=== PATIENT | male | born 1935 | race Caucasian/White ===

== ENCOUNTER → 2017-01-28 | Outpatient (CLI) | payer OTHER ==
[~2017-01-28] MED LIST: GADOBUTROL 10 MMOL/10 ML PFS ONE
== END | disposition home or self-care (01) ==
LOC: CFH 09:39
PROVIDERS: ATTEND Neurological Surgery
DX: G93.89 Other specified disorders of brain (principal); G31.9 Degenerative disease of nervous system, unspecified
CPT/HCPCS: 70553; A9585

== ENCOUNTER → 2017-02-18 | Outpatient (CLI) | payer OTHER | END | disposition home or self-care (01) | LOC: STAR 11:15 | PROVIDERS: ATTEND Family Medicine | DX: Z01.818 Encounter for other preprocedural examination (principal); R40.0 Somnolence; R53.83 Other fatigue | CPT/HCPCS: 93005 ==

== ENCOUNTER 2017-10-11 10:22 | Emergency (ER) | payer OTHER ==
[~2017-10-11] VITALS: Ht 185.4 cm; Wt 70.5 kg
[2017-10-11 11:51] LABS: MICROSCOPIC NOT IND
[2017-10-11 11:53] LABS: CULTURE INDICATED? NO
[2017-10-11] MEDS ORDERED: SODIUM CHLORIDE FLUSH 10ML SYR IVF ONE (12:00)
[2017-10-11 12:11] LABS: BASOPHILS # (AUTO) 0.02 x10^3/uL (0-0.1); BASOPHILS % (AUTO) 0 % (0-1); EOSINOPHILS # (AUTO) 0.19 x10^3/uL (0-0.4); EOSINOPHILS % (AUTO) 3 % (1-7); LYMPHOCYTES # (AUTO) 1.52 x10^3/uL (1-3.4); LYMPHOCYTES % (AUTO) 20 % (22-44); MD NO; MEAN CORPUSCULAR HEMOGLOBIN 29.7 pg (27.5-34.5); MEAN CORPUSCULAR VOLUME 89.8 fL (81-97); MEAN PLATELET VOLUME 7.7 fL (7.4-10.4); MONOCYTES # (AUTO) 0.55 x10^3/uL (0.2-0.8); MONOCYTES % (AUTO) 7 % (2-9); NEUTROPHILS # (AUTO) 5.31 x10^3/uL (1.8-6.8); NEUTROPHILS % (AUTO) 70 % (42-75); PLATELET COUNT 249 x10^3/uL (130-400)
[2017-10-11 12:16] LABS: ALBUMIN 3.6 g/dL (3.4-5.0); ANION GAP 7 mmol/L (5-15); CALCIUM 9.6 mg/dL (8.5-10.1); CHLORIDE 105 mmol/L (98-107)
[2017-10-11 12:20] LABS: ALANINE AMINOTRANSFERASE 11 U/L (12-78); ALKALINE PHOSPHATASE 109 U/L (45-117); BILIRUBIN,TOTAL 0.5 mg/dL (0.2-1.0); CREATININE 0.99 mg/dL (0.7-1.3); TOTAL PROTEIN 7.3 g/dL (6.4-8.2)
[2017-10-11] MEDS ORDERED: OMNIPAQUE 350 MG/ML, 100ML BOTTLE ONE (14:17)
[2017-10-11] MEDS ORDERED: FINA5TAB4 PO (14:25)
[2017-10-11] MEDS ORDERED: CHOL200024 PO (14:25)
[2017-10-11] MEDS ORDERED: ASPI-496 PO (14:25)
[2017-10-11] MEDS ORDERED: RANI150T8 PO (14:25)
[2017-10-11] MEDS ORDERED: FOLI-17 PO (14:25)
[2017-10-11] MEDS ORDERED: PINK LADY ENEMA 1,000 ML PR ONE (15:30)
[2017-10-11 17:19] VITALS: BP 160/72
== END 2017-10-11 17:21 | disposition home or self-care (01) ==
LOC: ED 17:16
DX: K59.00 Constipation, unspecified (principal); R33.9 Retention of urine, unspecified; N40.0 Benign prostatic hyperplasia without lower urinary tract symptoms; E11.9 Type 2 diabetes mellitus without complications; Z87.891 Personal history of nicotine dependence
CPT/HCPCS: 36415; 51702; 74022; 74177; 80053; 81003; 83690; 85025; 93005; 99285; Q9967

== ENCOUNTER 2017-10-12 13:05 | Inpatient (IN) | payer OTHER ==
[~2017-10-12] VITALS: Ht 185.4 cm; Wt 68.4 kg
[~2017-10-12 13:05] MED LIST changes: +ASPI-496 PO; +CHOL200024 PO; +FINA5TAB4 PO; +FOLI-17 PO; -GADOBUTROL 10 MMOL/10 ML PFS ONE; +RANI150T8 PO
[2017-10-12 15:14] LABS: BASOPHILS # (AUTO) 0.01 x10^3/uL (0-0.1); BASOPHILS % (AUTO) 0 % (0-1); EOSINOPHILS # (AUTO) 0.05 x10^3/uL (0-0.4); EOSINOPHILS % (AUTO) 1 % (1-7); LYMPHOCYTES # (AUTO) 1.22 x10^3/uL (1-3.4); LYMPHOCYTES % (AUTO) 14 % (22-44); MD NO; MEAN CORPUSCULAR HEMOGLOBIN 30.1 pg (27.5-34.5); MEAN CORPUSCULAR HGB CONC 33.5 g/dL (33.2-36.2); MEAN CORPUSCULAR VOLUME 89.7 fL (81-97); MEAN PLATELET VOLUME 7.3 fL (7.4-10.4); MONOCYTES # (AUTO) 0.57 x10^3/uL (0.2-0.8); MONOCYTES % (AUTO) 7 % (2-9); NEUTROPHILS # (AUTO) 6.61 x10^3/uL (1.8-6.8); NEUTROPHILS % (AUTO) 78 % (42-75); PLATELET COUNT 258 x10^3/uL (130-400); RED BLOOD COUNT 4.88 x10^6/uL (4.38-5.82); RED CELL DISTRIBUTION WIDTH 13.5 % (9.4-14.8)
[2017-10-12 15:22] LABS: ALANINE AMINOTRANSFERASE 13 U/L (12-78); ALBUMIN 3.7 g/dL (3.4-5.0); ANION GAP 4 mmol/L (5-15); CALCIUM 9.2 mg/dL (8.5-10.1); CHLORIDE 104 mmol/L (98-107); CREATININE 1.18 mg/dL (0.7-1.3)
[2017-10-12 15:25] LABS: ALKALINE PHOSPHATASE 117 U/L (45-117); BILIRUBIN,TOTAL 0.4 mg/dL (0.2-1.0); TOTAL PROTEIN 7.7 g/dL (6.4-8.2)
[2017-10-12 15:28] LABS: MICROSCOPIC INDICATED
[2017-10-12 15:35] LABS: CULTURE INDICATED? YES
[2017-10-12] MEDS ORDERED: PINK LADY ENEMA 1,000 ML PR ONE (16:00)
[2017-10-12] MEDS ORDERED: ONDANSETRON ODT 4 MG PO PRN (18:30)
[2017-10-12] MEDS ORDERED: ACETAMINOPHEN 325 MG TABLET PO PRN (18:30)
[2017-10-12] MEDS ORDERED: MAGNESIUM CITRATE 300ML ORAL SOL PO ONE (18:30)
[2017-10-12 19:32] VITALS: BP 160/70
[2017-10-12] MEDS: CEFTRIAXONE PMX 1GM/50ML 50 ML IV SCH (19:57)
[2017-10-12] MEDS: SODIUM CHLORIDE FLUSH 10ML SYR IVF SCH (20:41)
[2017-10-12] MEDS ORDERED: ALUMINUM/MAG/SIMETHICONE 30 ML UDC PO PRN ×2 (22:30)
[2017-10-12] MEDS ORDERED: SODIUM CHLORIDE 0.9% 1,000 ML IV SCH (22:30)
[2017-10-12] MEDS: BISACODYL 10 MG SUPP PR SCH (22:58)
[2017-10-13 01:36] VITALS: BP 132/74
[2017-10-13 06:50] VITALS: BP 167/83
[2017-10-13] MEDS: TAMSULOSIN 0.4 MG CAP.ER.24H PO SCH (08:36)
[2017-10-13] MEDS: FINASTERIDE 5 MG TABLET PO SCH (08:36)
[2017-10-13] MEDS: CHOLECALCIFEROL 1,000 UNIT TABLET PO SCH (08:36)
[2017-10-13] MEDS: FOLIC ACID 1 MG TABLET PO SCH (08:36)
[2017-10-13] MEDS: FAMOTIDINE 20 MG TABLET PO SCH (08:36)
[2017-10-13] MEDS: SODIUM CHLORIDE FLUSH 10ML SYR IVF SCH ×2 (08:37→21:10)
[2017-10-13] MEDS ORDERED: ASPIRIN 81 MG TABLET EC PO SCH (09:00)
[2017-10-13] MEDS: BISACODYL 10 MG SUPP PR SCH ×2 (09:00→21:10)
[2017-10-13 12:45] VITALS: BP 152/78
[2017-10-13] MEDS ORDERED: TAMS-11 PO (14:48)
[2017-10-13 17:55] VITALS: BP 100/64
[2017-10-13] MEDS ORDERED: SODIUM CHLORIDE 0.9%, 500ML IVBOLUS ONE (18:30)
[2017-10-13 19:03] VITALS: BP 119/66
[2017-10-13] MEDS ORDERED: SODIUM CHLORIDE 0.9% 1,000 ML IV SCH (20:00)
[2017-10-13] MEDS: CEFTRIAXONE PMX 1GM/50ML 50 ML IV SCH (21:10)
[2017-10-14 03:15] VITALS: BP 136/71
[2017-10-14 05:13] LABS: BASOPHILS # (AUTO) 0.02 x10^3/uL (0-0.1); BASOPHILS % (AUTO) 0 % (0-1); EOSINOPHILS # (AUTO) 0.28 x10^3/uL (0-0.4); EOSINOPHILS % (AUTO) 4 % (1-7); LYMPHOCYTES # (AUTO) 1.59 x10^3/uL (1-3.4); LYMPHOCYTES % (AUTO) 23 % (22-44); MD NO; MEAN CORPUSCULAR HEMOGLOBIN 30.2 pg (27.5-34.5); MEAN CORPUSCULAR HGB CONC 33.4 g/dL (33.2-36.2); MEAN CORPUSCULAR VOLUME 90.4 fL (81-97); MEAN PLATELET VOLUME 7.7 fL (7.4-10.4); MONOCYTES # (AUTO) 0.77 x10^3/uL (0.2-0.8); MONOCYTES % (AUTO) 11 % (2-9); NEUTROPHILS % (AUTO) 62 % (42-75); PLATELET COUNT 182 x10^3/uL (130-400); RED BLOOD COUNT 3.54 x10^6/uL (4.38-5.82); RED CELL DISTRIBUTION WIDTH 13.7 % (9.4-14.8)
[2017-10-14 06:43] VITALS: BP 142/69
[2017-10-14] MEDS: BISACODYL 10 MG SUPP PR SCH (09:00)
[2017-10-14] MEDS: SODIUM CHLORIDE FLUSH 10ML SYR IVF SCH (09:00)
[2017-10-14] MEDS ORDERED: NITROGLYCERIN 0.4 MG BOTTLE (25 TABS) SL ONE (09:08)
[2017-10-14] MEDS ORDERED: METHOCARBAMOL 500 MG TABLET PO ONE (09:30)
[2017-10-14 09:45] LABS: TROPONIN I < 0.015 ng/mL (0.000-0.045)
[2017-10-14] MEDS: CHOLECALCIFEROL 1,000 UNIT TABLET PO SCH (09:47)
[2017-10-14] MEDS: FOLIC ACID 1 MG TABLET PO SCH (09:47)
[2017-10-14] MEDS: FINASTERIDE 5 MG TABLET PO SCH (09:47)
[2017-10-14] MEDS: FAMOTIDINE 20 MG TABLET PO SCH (09:47)
[2017-10-14] MEDS: TAMSULOSIN 0.4 MG CAP.ER.24H PO SCH (09:54)
[2017-10-14 12:28] VITALS: BP 101/62
[2017-10-14 14:57] LABS: TROPONIN I < 0.015 ng/mL (0.000-0.045)
[2017-10-14] MEDS ORDERED: POLY17PO5 PO (15:56)
[2017-10-14] MEDS ORDERED: DOCU-131 PO (15:56)
== END 2017-10-14 17:20 | disposition home or self-care (01) | DRG 392 ==
LOC: ED 17:17 → EDIP 17:51 → 3NE 19:19
PROVIDERS: ADMIT Hospitalist; ATTEND Hospitalist
PROC: 0T9B70Z Drainage of Bladder with Drainage Device, Via Natural or Artificial Opening (ICD-10-PCS; principal; 2017-10-12)
DX: K59.00 Constipation, unspecified (principal); E11.9 Type 2 diabetes mellitus without complications; N13.8 Other obstructive and reflux uropathy; R31.0 Gross hematuria; S37.30XA Unspecified injury of urethra, initial encounter; N40.1 Benign prostatic hyperplasia with lower urinary tract symptoms; R62.7 Adult failure to thrive; R07.89 Other chest pain; G89.29 Other chronic pain; R33.8 Other retention of urine
CPT/HCPCS: 36415; 80053; 81001; 82962; 84484; 85014; 85018; 85025; 87086; 93005; 99285; J0696; J7030; J7040

== ENCOUNTER 2017-10-14 21:25 | Emergency (ER) | payer OTHER ==
[~2017-10-14] VITALS: Ht 185.4 cm; Wt 71.6 kg
[~2017-10-14 21:25] MED LIST changes: +DOCU-131 PO; +POLY17PO5 PO; +TAMS-11 PO
[2017-10-14 21:27] VITALS: BP 148/83
== END 2017-10-15 00:41 | disposition home or self-care (01) ==
LOC: ED 23:59
DX: T83.098A Other mechanical complication of other urinary catheter, initial encounter (principal)
CPT/HCPCS: 99281

== ENCOUNTER → 2018-02-16 | Outpatient (CLI) | payer OTHER ==
[~2018-02-16] MED LIST changes: +GADOBUTROL 7.5 MMOL/7.5 ML PFS ONE; +RANI150T23 PO; -RANI150T8 PO
== END | disposition home or self-care (01) ==
LOC: CFH 09:55
PROVIDERS: ATTEND Neurological Surgery
DX: D32.0 Benign neoplasm of cerebral meninges (principal)
CPT/HCPCS: 70553; 82565; A9585

== ENCOUNTER 2018-03-13 09:26 | Inpatient (IN) | payer OTHER ==
[~2018-03-13] VITALS: Ht 185.4 cm; Wt 68.6 kg
[~2018-03-13 09:26] MED LIST changes: -GADOBUTROL 7.5 MMOL/7.5 ML PFS ONE
[2018-03-13] MEDS ORDERED: SODIUM CHLORIDE FLUSH 10ML SYR IVF ONE (12:30)
[2018-03-13 12:51] LABS: INTERNATIONAL NORMALIZED RATIO 1.1 (0.93-1.1); PROTHROMBIN TIME 11.4 Seconds (9.6-11.5)
[2018-03-13 12:52] LABS: ALBUMIN 3.6 g/dL (3.4-5.0); ANION GAP 4 mmol/L (5-15); CALCIUM 9.9 mg/dL (8.5-10.1); CHLORIDE 105 mmol/L (98-107); CREATININE 1.01 mg/dL (0.7-1.3)
[2018-03-13 12:57] LABS: BASOPHILS # (AUTO) 0.05 x10^3/uL (0-0.1); BASOPHILS % (AUTO) 1 % (0-1); EOSINOPHILS # (AUTO) 0.13 x10^3/uL (0-0.4); EOSINOPHILS % (AUTO) 2 % (1-7); LYMPHOCYTES # (AUTO) 1.72 x10^3/uL (1-3.4); LYMPHOCYTES % (AUTO) 26 % (22-44); MD NO; MEAN CORPUSCULAR HEMOGLOBIN 28.6 pg (27.5-34.5); MEAN CORPUSCULAR HGB CONC 32.7 g/dL (33.2-36.2); MEAN CORPUSCULAR VOLUME 87.4 fL (81-97); MEAN PLATELET VOLUME 7.8 fL (7.4-10.4); MONOCYTES # (AUTO) 0.75 x10^3/uL (0.2-0.8); MONOCYTES % (AUTO) 11 % (2-9); NEUTROPHILS # (AUTO) 3.94 x10^3/uL (1.8-6.8); NEUTROPHILS % (AUTO) 60 % (42-75); PLATELET COUNT 239 x10^3/uL (130-400); RED CELL DISTRIBUTION WIDTH 14.7 % (9.4-14.8)
[2018-03-13] MEDS ORDERED: SODIUM CHLORIDE FLUSH 10ML SYR IVF PRN (13:00)
[2018-03-13] MEDS ORDERED: LABETALOL 5MG/ML, 20ML IVPush PRN (13:30)
[2018-03-13] MEDS ORDERED: ACETAMINOPHEN 325 MG TABLET PO PRN (13:30)
[2018-03-13] MEDS ORDERED: ENALAPRILAT 1.25 MG/ML, 2ML IVPush PRN (13:30)
[2018-03-13] MEDS ORDERED: POLYETHYLENE GLYCOL 17 GM PACKET PO PRN (13:30)
[2018-03-13] MEDS ORDERED: GLUCAGON 1 MG IM PRN (13:30)
[2018-03-13] MEDS ORDERED: DEXTROSE 4 GM TAB.CHEW PO PRN (13:30)
[2018-03-13] MEDS ORDERED: ONDANSETRON ODT 4 MG PO PRN (13:30)
[2018-03-13] MEDS ORDERED: HYDROcodone/APAP 5/325 TABLET PO PRN (13:30)
[2018-03-13] MEDS ORDERED: DEXTROSE 50%, 50ML SYRINGE IVPush PRN (13:30)
[2018-03-13] MEDS ORDERED: BISACODYL 10 MG SUPP PR PRN (13:30)
[2018-03-13] MEDS ORDERED: ONDANSETRON 2MG/ML, 2ML IVPush PRN (13:30)
[2018-03-13 14:01] VITALS: BP 162/88
[2018-03-13] MEDS: INSULIN LISPRO 100 UNITS/ML, PEN SQ-INSULIN SCH ×2 (16:00→21:33)
[2018-03-13] MEDS: SODIUM CHLORIDE 0.9% 1,000 ML IV SCH (16:02)
[2018-03-13] MEDS: SODIUM CHLORIDE FLUSH 10ML SYR IVF SCH (20:08)
[2018-03-13] MEDS: DOCUSATE 100 MG CAPSULE PO SCH (20:08)
[2018-03-13 20:12] VITALS: BP 174/74
[2018-03-14 02:56] VITALS: BP 172/78
[2018-03-14] MEDS: INSULIN LISPRO 100 UNITS/ML, PEN SQ-INSULIN SCH ×4 (05:32→23:03)
[2018-03-14] MEDS: SODIUM CHLORIDE 0.9% 1,000 ML IV SCH ×2 (05:33→19:00)
[2018-03-14] MEDS ORDERED: BALANCED SALT OPHTH IRRIG SOLN 18ML ONE (06:55)
[2018-03-14] MEDS ORDERED: LIDOCAINE 1%-EPI 1:100K, 30ML ONE (06:55)
[2018-03-14] MEDS ORDERED: FENTANYL PF 100 MCG/2ML ONE ×2 (07:25→10:00)
[2018-03-14] MEDS ORDERED: LIDOCAINE GEL 2%, 5ML ONE (07:27)
[2018-03-14] MEDS ORDERED: hydrALAzine 20 MG/ML, 1ML IV PRN (07:30)
[2018-03-14] MEDS ORDERED: LIDOCAINE 1%-EPI 1:100K, 30ML INFIL ONE (08:05)
[2018-03-14 08:21] VITALS: BP 164/83
[2018-03-14] MEDS: SODIUM CHLORIDE FLUSH 10ML SYR IVF SCH ×2 (08:58→21:00)
[2018-03-14] MEDS: DOCUSATE 100 MG CAPSULE PO SCH ×2 (08:59→21:30)
[2018-03-14] MEDS: CHOLECALCIFEROL 1,000 UNIT TABLET PO SCH (08:59)
[2018-03-14] MEDS: FOLIC ACID 1 MG TABLET PO SCH (08:59)
[2018-03-14] MEDS: FAMOTIDINE 40 MG TABLET PO SCH (08:59)
[2018-03-14] MEDS: FINASTERIDE 5 MG TABLET PO SCH (08:59)
[2018-03-14] MEDS ORDERED: MIDAZOLAM 1 MG/ML, 2ML IV PRN (09:00)
[2018-03-14] MEDS ORDERED: MEPERIDINE/PF 25MG/0.5ML IVPush PRN (09:00)
[2018-03-14] MEDS ORDERED: EPHEDRINE 50 MG/ML, 1ML IM PRN (09:00)
[2018-03-14] MEDS ORDERED: OXYcodone 5 MG/5 ML ORAL.SOL UDC PO PRN (09:00)
[2018-03-14] MEDS ORDERED: ONDANSETRON 2MG/ML, 2ML IV PRN (09:00)
[2018-03-14] MEDS ORDERED: ACETAMINOPHEN 325 MG TABLET PO PRN (09:00)
[2018-03-14] MEDS ORDERED: ALBUTEROL/IPRATROPIUM 2.5MG/0.5MG, 3 ML NPPB PRN (09:00)
[2018-03-14] MEDS ORDERED: DEXAMETHASONE 4 MG/ML, 1ML ONE (09:04)
[2018-03-14] MEDS ORDERED: CEFAZOLIN 1,000 MG ONE (09:04)
[2018-03-14] MEDS ORDERED: PROPOFOL 10 MG/ML, 20ML ONE (09:04)
[2018-03-14] MEDS ORDERED: MUPIROCIN OINT 2%, 22GM ONE (09:38)
[2018-03-14] MEDS ORDERED: LABETALOL 5MG/ML, 20ML ONE (10:00)
[2018-03-14] MEDS: LABETALOL 5MG/ML, 20ML IV PRN ×4 (10:07→10:30)
[2018-03-14] MEDS: FENTANYL PF 100 MCG/2ML IV PRN ×5 (10:18→13:23)
[2018-03-14] MEDS ORDERED: hydrALAzine 20 MG/ML, 1ML ONE (10:33)
[2018-03-14] MEDS: hydrALAzine 20 MG/ML, 1ML IV PRN ×2 (10:35→12:07)
[2018-03-14] MEDS ORDERED: HYDROcodone/APAP 7.5-325MG/15ML UDC ONE (10:46)
[2018-03-14] MEDS: HYDROmorphone 1 MG/ML, 1ML IV PRN ×4 (11:00→12:05)
[2018-03-14] MEDS ORDERED: HYDROmorphone 2 MG/ML, 1ML ONE (11:10)
[2018-03-14] MEDS ORDERED: ENALAPRILAT 1.25 MG/ML, 2ML ONE (11:11)
[2018-03-14] MEDS ORDERED: PHENYLEPHRINE 10 MG/ML ONE (11:22)
[2018-03-14] MEDS ORDERED: SUCCINYLCHOLINE 20 MG/ML, 10ML ONE (11:22)
[2018-03-14] MEDS ORDERED: MORPHINE SULFATE 4 MG/ML, 1ML ONE (12:06)
[2018-03-14] MEDS: morphine SULFATE 10 MG/ML, 1ML IVPush PRN ×2 (12:09→12:17)
[2018-03-14 13:00] VITALS: BP 147/76
[2018-03-14] MEDS ORDERED: LACTATED RINGERS 1,000 ML IV SCH (13:00)
[2018-03-14 19:28] VITALS: BP 128/67
[2018-03-15 02:24] VITALS: BP 123/68
[2018-03-15 04:02] VITALS: BP 125/57
[2018-03-15 05:06] LABS: ANION GAP 9 mmol/L (5-15); CALCIUM 8.7 mg/dL (8.5-10.1); CHLORIDE 104 mmol/L (98-107)
[2018-03-15 05:07] LABS: BASOPHILS # (AUTO) 0.01 x10^3/uL (0-0.1); BASOPHILS % (AUTO) 0 % (0-1); CREATININE 0.95 mg/dL (0.7-1.3); EOSINOPHILS % (AUTO) 0 % (1-7); LYMPHOCYTES # (AUTO) 1.03 x10^3/uL (1-3.4); LYMPHOCYTES % (AUTO) 7 % (22-44); MD NO; MEAN CORPUSCULAR HEMOGLOBIN 28.8 pg (27.5-34.5); MEAN CORPUSCULAR HGB CONC 33.3 g/dL (33.2-36.2); MEAN CORPUSCULAR VOLUME 86.7 fL (81-97); MEAN PLATELET VOLUME 7.7 fL (7.4-10.4); MONOCYTES # (AUTO) 1.44 x10^3/uL (0.2-0.8); MONOCYTES % (AUTO) 10 % (2-9); NEUTROPHILS % (AUTO) 82 % (42-75); PLATELET COUNT 243 x10^3/uL (130-400); RED BLOOD COUNT 4.22 x10^6/uL (4.38-5.82); RED CELL DISTRIBUTION WIDTH 14.8 % (9.4-14.8)
[2018-03-15 07:58] VITALS: BP 129/67
[2018-03-15] MEDS: SODIUM CHLORIDE 0.9% 1,000 ML IV SCH (08:01)
[2018-03-15] MEDS: FAMOTIDINE 40 MG TABLET PO SCH (09:24)
[2018-03-15] MEDS: FINASTERIDE 5 MG TABLET PO SCH (09:24)
[2018-03-15] MEDS: DOCUSATE 100 MG CAPSULE PO SCH (09:24)
[2018-03-15] MEDS: FOLIC ACID 1 MG TABLET PO SCH (09:24)
[2018-03-15] MEDS: INSULIN LISPRO 100 UNITS/ML, PEN SQ-INSULIN SCH ×2 (09:25→11:00)
[2018-03-15] MEDS: CHOLECALCIFEROL 1,000 UNIT TABLET PO SCH (09:25)
[2018-03-15] MEDS: SODIUM CHLORIDE FLUSH 10ML SYR IVF SCH (09:30)
[2018-03-15 13:51] VITALS: BP 135/72
== END 2018-03-15 13:57 | disposition home or self-care (01) | DRG 131 ==
LOC: ED 12:49 → EDIP 12:50 → ED 13:09 → 4NOR 13:52
PROVIDERS: ADMIT Internal Medicine; ATTEND Internal Medicine
PROC: 0NSV04Z Reposition Left Mandible with Internal Fixation Device, Open Approach (ICD-10-PCS; 2018-03-14)
PROC: 0NSV04Z Reposition Left Mandible with Internal Fixation Device, Open Approach (ICD-10-PCS; principal; 2018-03-14 07:30)
DX: S02.642A Fracture of ramus of left mandible, initial encounter for closed fracture (principal); R71.0 Precipitous drop in hematocrit; S02.612A Fracture of condylar process of left mandible, initial encounter for closed fracture; I10 Essential (primary) hypertension; G47.33 Obstructive sleep apnea (adult) (pediatric); N40.0 Benign prostatic hyperplasia without lower urinary tract symptoms; G20 Parkinson's disease; E11.9 Type 2 diabetes mellitus without complications; D32.9 Benign neoplasm of meninges, unspecified; R13.10 Dysphagia, unspecified; W01.0XXA Fall on same level from slipping, tripping and stumbling without subsequent striking against object, initial encounter; Y93.89 Activity, other specified; Y92.89 Other specified places as the place of occurrence of the external cause; Y99.8 Other external cause status; Z87.891 Personal history of nicotine dependence
CPT/HCPCS: 36415; 70486; 71045; 80048; 82040; 82962; 85025; 85610; 85730; 93005; 99285; C1713; G0378; J0690; J1100; J1170; J2704; J3010; J3490; J0330; J0360; J1815; J2270; J2370; J7030; J7120

== ENCOUNTER 2018-03-18 09:09 | Inpatient (IN) | payer OTHER ==
[~2018-03-18] VITALS: Ht 185.4 cm; Wt 64.2 kg
[2018-03-18 09:57] LABS: BASOPHILS # (AUTO) 0.03 x10^3/uL (0-0.1); BASOPHILS % (AUTO) 0 % (0-1); EOSINOPHILS % (AUTO) 4 % (1-7); LYMPHOCYTES # (AUTO) 1.37 x10^3/uL (1-3.4); LYMPHOCYTES % (AUTO) 19 % (22-44); MD NO; MEAN CORPUSCULAR HEMOGLOBIN 28.7 pg (27.5-34.5); MEAN CORPUSCULAR VOLUME 86.9 fL (81-97); MONOCYTES # (AUTO) 0.71 x10^3/uL (0.2-0.8); MONOCYTES % (AUTO) 10 % (2-9); NEUTROPHILS # (AUTO) 4.84 x10^3/uL (1.8-6.8); NEUTROPHILS % (AUTO) 67 % (42-75); PLATELET COUNT 302 x10^3/uL (130-400); RED CELL DISTRIBUTION WIDTH 15.1 % (9.4-14.8)
[2018-03-18 10:04] LABS: ALANINE AMINOTRANSFERASE 9 U/L (12-78); ANION GAP 3 mmol/L (5-15); CALCIUM 8.9 mg/dL (8.5-10.1); CHLORIDE 107 mmol/L (98-107); CREATININE 0.96 mg/dL (0.7-1.3)
[2018-03-18 10:07] LABS: ALKALINE PHOSPHATASE 93 U/L (45-117); TOTAL PROTEIN 6.9 g/dL (6.4-8.2); TROPONIN I < 0.015 ng/mL (0.000-0.045)
[2018-03-18 10:10] LABS: INTERNATIONAL NORMALIZED RATIO 1.01 (0.93-1.1); PROTHROMBIN TIME 10.5 Seconds (9.6-11.5)
[2018-03-18 10:29] LABS: BILIRUBIN,TOTAL 0.4 mg/dL (0.2-1.0)
[2018-03-18 12:33] VITALS: BP 182/92
[2018-03-18 12:34] LABS: MICROSCOPIC NOT IND
[2018-03-18 12:35] LABS: CULTURE INDICATED? NO
[2018-03-18] MEDS ORDERED: METF850T10 PO (12:42)
[2018-03-18] MEDS ORDERED: morphine SULFATE 10 MG/ML, 1ML IVPush PRN (14:00)
[2018-03-18] MEDS ORDERED: PROMETHAZINE 25 MG/ML, 1ML IM PRN (14:00)
[2018-03-18] MEDS ORDERED: METOCLOPRAMIDE 5 MG/ML, 2ML IVPush PRN (14:00)
[2018-03-18] MEDS ORDERED: LABETALOL 5MG/ML, 20ML IVPush PRN (14:00)
[2018-03-18] MEDS ORDERED: OXYcodone IR 5MG TABLET PO PRN (14:00)
[2018-03-18] MEDS ORDERED: ONDANSETRON 2MG/ML, 2ML IVPush PRN (14:00)
[2018-03-18] MEDS ORDERED: ONDANSETRON ODT 4 MG PO PRN (14:00)
[2018-03-18] MEDS ORDERED: ENALAPRILAT 1.25 MG/ML, 2ML IVPush PRN (14:00)
[2018-03-18] MEDS: ACETAMINOPHEN 325 MG TABLET PO PRN ×3 (14:13→22:31)
[2018-03-18] MEDS: ENOXAPARIN 30 MG/0.3 ML SQ SCH (14:17)
[2018-03-18 14:46] LABS: TROPONIN I < 0.015 ng/mL (0.000-0.045)
[2018-03-18 17:11] LABS: CHLORIDE,URINE RANDOM 119 mmol/L; CULTURE INDICATED? NO; MICROSCOPIC NOT IND; POTASSIUM,URINE RANDOM 28 mmol/L; SODIUM,URINE RANDOM 116 mmol/L
[2018-03-18] MEDS: SIMVASTATIN 20 MG TABLET PO SCH (19:32)
[2018-03-18] MEDS: INSULIN LISPRO 100 UNITS/ML, PEN SQ-INSULIN SCH (19:37)
[2018-03-18 19:52] LABS: TROPONIN I < 0.015 ng/mL (0.000-0.045)
[2018-03-18 20:04] VITALS: BP 182/106
[2018-03-18] MEDS: hydrALAzine 20 MG/ML, 1ML IVPush PRN (20:42)
[2018-03-18] MEDS ORDERED: MAGNESIUM HYDROXIDE 8%, 30ML UDC PO ONE (21:00)
[2018-03-18 22:28] VITALS: BP 156/62
[2018-03-19 01:49] VITALS: BP 132/70
[2018-03-19] MEDS: ENOXAPARIN 30 MG/0.3 ML SQ SCH ×2 (02:17→14:37)
[2018-03-19] MEDS: ACETAMINOPHEN 325 MG TABLET PO PRN ×3 (02:17→11:12)
[2018-03-19 05:58] LABS: BASOPHILS # (AUTO) 0.03 x10^3/uL (0-0.1); BASOPHILS % (AUTO) 0 % (0-1); EOSINOPHILS # (AUTO) 0.17 x10^3/uL (0-0.4); EOSINOPHILS % (AUTO) 3 % (1-7); LYMPHOCYTES # (AUTO) 1.47 x10^3/uL (1-3.4); LYMPHOCYTES % (AUTO) 21 % (22-44); MD NO; MEAN CORPUSCULAR HEMOGLOBIN 29.4 pg (27.5-34.5); MEAN CORPUSCULAR HGB CONC 33.3 g/dL (33.2-36.2); MEAN CORPUSCULAR VOLUME 88.4 fL (81-97); MEAN PLATELET VOLUME 7.4 fL (7.4-10.4); MONOCYTES # (AUTO) 0.64 x10^3/uL (0.2-0.8); MONOCYTES % (AUTO) 9 % (2-9); NEUTROPHILS # (AUTO) 4.58 x10^3/uL (1.8-6.8); NEUTROPHILS % (AUTO) 66 % (42-75); PLATELET COUNT 312 x10^3/uL (130-400); RED BLOOD COUNT 4.44 x10^6/uL (4.38-5.82); RED CELL DISTRIBUTION WIDTH 14.6 % (9.4-14.8)
[2018-03-19 06:00] LABS: ANION GAP 7 mmol/L (5-15); CALCIUM 8.7 mg/dL (8.5-10.1); CHLORIDE 104 mmol/L (98-107)
[2018-03-19 06:11] LABS: ALANINE AMINOTRANSFERASE 10 U/L (12-78); ALKALINE PHOSPHATASE 94 U/L (45-117); BILIRUBIN,TOTAL 0.4 mg/dL (0.2-1.0); CREATININE 0.81 mg/dL (0.7-1.3); THYROID STIMULATING HORMONE 0.836 mIU/L (0.358-3.740); TOTAL PROTEIN 6.9 g/dL (6.4-8.2)
[2018-03-19 06:45] VITALS: BP 156/82
[2018-03-19] MEDS ORDERED: REGADENOSON 0.4 MG/5 ML SYRINGE ONE (07:08)
[2018-03-19] MEDS: INSULIN LISPRO 100 UNITS/ML, PEN SQ-INSULIN SCH ×4 (07:46→20:35)
[2018-03-19] MEDS: FINASTERIDE 5 MG TABLET PO SCH (11:33)
[2018-03-19] MEDS: FOLIC ACID 1 MG TABLET PO SCH (11:34)
[2018-03-19] MEDS: FAMOTIDINE 20 MG TABLET PO SCH (11:35)
[2018-03-19] MEDS: ASPIRIN 325 MG TABLET PO SCH (11:35)
[2018-03-19] MEDS: CHOLECALCIFEROL 1,000 UNIT TABLET PO SCH (11:35)
[2018-03-19 13:27] VITALS: BP 160/76
[2018-03-19] MEDS ORDERED: OMNIPAQUE 350 MG/ML, 100ML BOTTLE ONE (15:10)
[2018-03-19 18:53] VITALS: BP 127/77
[2018-03-19] MEDS: SIMVASTATIN 20 MG TABLET PO SCH (20:35)
[2018-03-20 02:00] VITALS: BP_SYST 124; BP_SYST 175; BP_DIAS 76; BP_DIAS 80
[2018-03-20] MEDS: ENOXAPARIN 30 MG/0.3 ML SQ SCH ×3 (02:10→21:46)
[2018-03-20] MEDS: hydrALAzine 20 MG/ML, 1ML IVPush PRN (02:11)
[2018-03-20 02:19] VITALS: BP 153/84
[2018-03-20 07:45] VITALS: BP 146/75
[2018-03-20 07:58] VITALS: BP 145/76
[2018-03-20] MEDS: CHOLECALCIFEROL 1,000 UNIT TABLET PO SCH (08:59)
[2018-03-20] MEDS: FOLIC ACID 1 MG TABLET PO SCH (08:59)
[2018-03-20] MEDS: INSULIN LISPRO 100 UNITS/ML, PEN SQ-INSULIN SCH ×4 (08:59→21:00)
[2018-03-20] MEDS: FAMOTIDINE 20 MG TABLET PO SCH (08:59)
[2018-03-20] MEDS: FINASTERIDE 5 MG TABLET PO SCH (08:59)
[2018-03-20] MEDS: ASPIRIN 325 MG TABLET PO SCH (09:00)
[2018-03-20] MEDS ORDERED: ASPI-621 PO (09:09)
[2018-03-20] MEDS ORDERED: ACETAMINOPHEN 500 MG TABLET PO SCH (12:00)
[2018-03-20] MEDS ORDERED: NYSTATIN 500,000 UNITS/5 ML UDC ONE (12:23)
[2018-03-20] MEDS: NYSTATIN 500,000 UNITS/5 ML UDC PO SCH ×3 (12:29→21:45)
[2018-03-20] MEDS: CEFTRIAXONE 2 GM in SODIUM CHLORIDE 0.9% 50 ML IV SCH (13:36)
[2018-03-20 14:34] VITALS: BP 112/66
[2018-03-20] MEDS: ACETAMINOPHEN 500 MG TABLET PO PRN (15:33)
[2018-03-20] MEDS ORDERED: NALOXONE 0.4 MG/ML, 1ML ONE (17:00)
[2018-03-20 20:08] VITALS: BP 122/71
[2018-03-21 03:21] VITALS: BP 118/59
[2018-03-21 05:29] LABS: ANION GAP 8 mmol/L (5-15); CALCIUM 9.1 mg/dL (8.5-10.1); CHLORIDE 109 mmol/L (98-107); CREATININE 0.92 mg/dL (0.7-1.3)
[2018-03-21 05:32] LABS: BASOPHILS # (AUTO) 0.03 x10^3/uL (0-0.1); BASOPHILS % (AUTO) 0 % (0-1); EOSINOPHILS # (AUTO) 0.15 x10^3/uL (0-0.4); EOSINOPHILS % (AUTO) 2 % (1-7); LYMPHOCYTES # (AUTO) 1.73 x10^3/uL (1-3.4); LYMPHOCYTES % (AUTO) 17 % (22-44); MD NO; MEAN CORPUSCULAR HEMOGLOBIN 29.2 pg (27.5-34.5); MEAN CORPUSCULAR HGB CONC 33.3 g/dL (33.2-36.2); MEAN CORPUSCULAR VOLUME 87.4 fL (81-97); MEAN PLATELET VOLUME 7.3 fL (7.4-10.4); MONOCYTES # (AUTO) 0.81 x10^3/uL (0.2-0.8); MONOCYTES % (AUTO) 8 % (2-9); NEUTROPHILS # (AUTO) 7.28 x10^3/uL (1.8-6.8); NEUTROPHILS % (AUTO) 73 % (42-75); PLATELET COUNT 303 x10^3/uL (130-400); RED BLOOD COUNT 3.93 x10^6/uL (4.38-5.82)
[2018-03-21] MEDS: NYSTATIN 500,000 UNITS/5 ML UDC PO SCH ×4 (05:47→21:22)
[2018-03-21 06:45] VITALS: BP 138/66
[2018-03-21] MEDS: INSULIN LISPRO 100 UNITS/ML, PEN SQ-INSULIN SCH ×4 (07:50→21:00)
[2018-03-21] MEDS: FINASTERIDE 5 MG TABLET PO SCH (09:52)
[2018-03-21] MEDS: FOLIC ACID 1 MG TABLET PO SCH (09:52)
[2018-03-21] MEDS: CHOLECALCIFEROL 1,000 UNIT TABLET PO SCH (09:52)
[2018-03-21] MEDS: FAMOTIDINE 20 MG TABLET PO SCH (09:52)
[2018-03-21 12:45] VITALS: BP 152/74
[2018-03-21] MEDS: CEFTRIAXONE 2 GM in SODIUM CHLORIDE 0.9% 50 ML IV SCH (13:30)
[2018-03-21] MEDS: ENOXAPARIN 30 MG/0.3 ML SQ SCH ×2 (14:00→21:22)
[2018-03-21] MEDS ORDERED: VANCOMYCIN PMX 1GM/200ML 200 ML IV ONE (14:00)
[2018-03-21] MEDS: AMPICILLIN/SULBACTAM 3 GM in SODIUM CHLORIDE 0.9% 100 ML IV SCH ×2 (14:00→20:13)
[2018-03-21] MEDS ORDERED: PHARMACOKINETIC MONITORING MC PRN (14:00)
[2018-03-21] MEDS ORDERED: VANCOMYCIN PER PHARMACY MC PRN (14:00)
[2018-03-21] MEDS: VANCOMYCIN 1,300 MG in SODIUM CHLORIDE 0.9% 250 ML IV SCH (14:30)
[2018-03-21 20:25] VITALS: BP 176/90
[2018-03-21] MEDS: ACETAMINOPHEN 325 MG TABLET PO PRN (21:27)
[2018-03-21 21:45] VITALS: BP 148/79
[2018-03-22] MEDS: AMPICILLIN/SULBACTAM 3 GM in SODIUM CHLORIDE 0.9% 100 ML IV SCH ×4 (02:16→20:11)
[2018-03-22 02:44] VITALS: BP 156/84
[2018-03-22 02:55] LABS: O2 FLOW ROOM AIR L/min
[2018-03-22 02:58] LABS: BASOPHILS # (AUTO) 0.08 x10^3/uL (0-0.1); BASOPHILS % (AUTO) 1 % (0-1); EOSINOPHILS # (AUTO) 0.16 x10^3/uL (0-0.4); EOSINOPHILS % (AUTO) 2 % (1-7); LYMPHOCYTES # (AUTO) 2.09 x10^3/uL (1-3.4); LYMPHOCYTES % (AUTO) 24 % (22-44); MD NO; MEAN CORPUSCULAR HEMOGLOBIN 29.3 pg (27.5-34.5); MEAN CORPUSCULAR HGB CONC 33.6 g/dL (33.2-36.2); MEAN CORPUSCULAR VOLUME 87.3 fL (81-97); MEAN PLATELET VOLUME 6.8 fL (7.4-10.4); MONOCYTES # (AUTO) 0.72 x10^3/uL (0.2-0.8); MONOCYTES % (AUTO) 8 % (2-9); NEUTROPHILS # (AUTO) 5.82 x10^3/uL (1.8-6.8); NEUTROPHILS % (AUTO) 66 % (42-75); PLATELET COUNT 302 x10^3/uL (130-400); RED BLOOD COUNT 4.07 x10^6/uL (4.38-5.82); RED CELL DISTRIBUTION WIDTH 14.9 % (9.4-14.8)
[2018-03-22 03:11] LABS: ANION GAP 5 mmol/L (5-15); CALCIUM 9.2 mg/dL (8.5-10.1); CHLORIDE 110 mmol/L (98-107); CREATININE 0.78 mg/dL (0.7-1.3)
[2018-03-22] MEDS ORDERED: NALOXONE 0.4 MG/ML, 1ML IVPush ONE (03:30)
[2018-03-22] MEDS ORDERED: PROPOFOL 100 ML IV PRN ×2 (04:00→12:15)
[2018-03-22] MEDS: INSULIN LISPRO 100 UNITS/ML, PEN SQ-INSULIN SCH ×4 (07:00→21:00)
[2018-03-22] MEDS: FINASTERIDE 5 MG TABLET PO SCH (08:44)
[2018-03-22] MEDS: NYSTATIN 500,000 UNITS/5 ML UDC PO SCH ×4 (08:49→21:09)
[2018-03-22] MEDS: FOLIC ACID 1 MG TABLET PO SCH (08:49)
[2018-03-22] MEDS: FAMOTIDINE 20 MG TABLET PO SCH (08:49)
[2018-03-22] MEDS: CHOLECALCIFEROL 1,000 UNIT TABLET PO SCH (09:00)
[2018-03-22] MEDS ORDERED: PROPOFOL 10 MG/ML, 100ML IV ONE (12:00)
[2018-03-22] MEDS ORDERED: ETOMIDATE 20 MG/10 ML ONE (12:00)
[2018-03-22] MEDS ORDERED: SUCCINYLCHOLINE 20 MG/ML, 10ML ONE (12:00)
[2018-03-22] MEDS ORDERED: LIDOCAINE-MPF 1%, 2ML ENDO PRN (12:30)
[2018-03-22] MEDS: ENOXAPARIN 30 MG/0.3 ML SQ SCH (13:38)
[2018-03-22] MEDS: VANCOMYCIN 1,300 MG in SODIUM CHLORIDE 0.9% 250 ML IV SCH (14:34)
[2018-03-22] MEDS ORDERED: morphine SULFATE/PF 1 MG/ML, 10ML IVPush PRN (21:00)
[2018-03-22] MEDS: ACETAMINOPHEN 500 MG TABLET PO PRN (21:09)
[2018-03-22] MEDS ORDERED: SODIUM CHLORIDE 0.9% 1,000ML IVBOLUS ONE (23:00)
[2018-03-22] MEDS: hydrALAzine 20 MG/ML, 1ML IVPush PRN (23:16)
[2018-03-22] MEDS: SODIUM CHLORIDE 0.9% 1,000 ML IV SCH (23:16)
[2018-03-23] MEDS: AMPICILLIN/SULBACTAM 3 GM in SODIUM CHLORIDE 0.9% 100 ML IV SCH ×4 (02:26→20:20)
[2018-03-23] MEDS: ENOXAPARIN 30 MG/0.3 ML SQ SCH ×2 (02:27→13:39)
[2018-03-23 04:32] LABS: BASOPHILS # (AUTO) 0.08 x10^3/uL (0-0.1); BASOPHILS % (AUTO) 1 % (0-1); EOSINOPHILS # (AUTO) 0.12 x10^3/uL (0-0.4); EOSINOPHILS % (AUTO) 1 % (1-7); LYMPHOCYTES # (AUTO) 1.22 x10^3/uL (1-3.4); LYMPHOCYTES % (AUTO) 12 % (22-44); MD NO; MEAN CORPUSCULAR HEMOGLOBIN 28.6 pg (27.5-34.5); MEAN CORPUSCULAR HGB CONC 32.9 g/dL (33.2-36.2); MEAN CORPUSCULAR VOLUME 86.8 fL (81-97); MEAN PLATELET VOLUME 7.4 fL (7.4-10.4); MONOCYTES # (AUTO) 0.99 x10^3/uL (0.2-0.8); MONOCYTES % (AUTO) 10 % (2-9); NEUTROPHILS # (AUTO) 7.97 x10^3/uL (1.8-6.8); NEUTROPHILS % (AUTO) 77 % (42-75); PLATELET COUNT 347 x10^3/uL (130-400); RED BLOOD COUNT 4.28 x10^6/uL (4.38-5.82); RED CELL DISTRIBUTION WIDTH 14.9 % (9.4-14.8)
[2018-03-23 04:42] LABS: ALBUMIN 2.8 g/dL (3.4-5.0); ANION GAP 7 mmol/L (5-15); CALCIUM 8.7 mg/dL (8.5-10.1); CHLORIDE 107 mmol/L (98-107)
[2018-03-23 04:50] LABS: ALANINE AMINOTRANSFERASE 14 U/L (12-78); ALKALINE PHOSPHATASE 92 U/L (45-117); BILIRUBIN,TOTAL 0.6 mg/dL (0.2-1.0); CREATININE 0.74 mg/dL (0.7-1.3); TOTAL PROTEIN 6.9 g/dL (6.4-8.2)
[2018-03-23] MEDS: INSULIN LISPRO 100 UNITS/ML, PEN SQ-INSULIN SCH ×3 (07:00→20:31)
[2018-03-23] MEDS: FOLIC ACID 1 MG TABLET PO SCH (07:46)
[2018-03-23] MEDS: NYSTATIN 500,000 UNITS/5 ML UDC PO SCH ×4 (07:46→20:31)
[2018-03-23] MEDS: CHOLECALCIFEROL 1,000 UNIT TABLET PO SCH (07:46)
[2018-03-23] MEDS: FINASTERIDE 5 MG TABLET PO SCH (07:47)
[2018-03-23] MEDS: FAMOTIDINE 20 MG TABLET PO SCH (07:49)
[2018-03-23] MEDS: hydrALAzine 20 MG/ML, 1ML IVPush PRN (13:39)
[2018-03-23] MEDS: ACETAMINOPHEN 500 MG TABLET PO PRN (17:19)
[2018-03-24] MEDS: SODIUM CHLORIDE 0.9% 1,000 ML IV SCH (00:38)
[2018-03-24] MEDS: ENOXAPARIN 30 MG/0.3 ML SQ SCH ×2 (01:50→13:33)
[2018-03-24] MEDS: AMPICILLIN/SULBACTAM 3 GM in SODIUM CHLORIDE 0.9% 100 ML IV SCH ×4 (01:50→20:12)
[2018-03-24] MEDS: INSULIN LISPRO 100 UNITS/ML, PEN SQ-INSULIN SCH ×4 (03:13→20:54)
[2018-03-24 04:34] LABS: BASOPHILS # (AUTO) 0.11 x10^3/uL (0-0.1); BASOPHILS % (AUTO) 1 % (0-1); EOSINOPHILS # (AUTO) 0.04 x10^3/uL (0-0.4); EOSINOPHILS % (AUTO) 0 % (1-7); LYMPHOCYTES # (AUTO) 1.05 x10^3/uL (1-3.4); LYMPHOCYTES % (AUTO) 9 % (22-44); MD NO; MEAN CORPUSCULAR HEMOGLOBIN 29.2 pg (27.5-34.5); MEAN CORPUSCULAR HGB CONC 33.5 g/dL (33.2-36.2); MEAN CORPUSCULAR VOLUME 87.3 fL (81-97); MONOCYTES # (AUTO) 0.92 x10^3/uL (0.2-0.8); MONOCYTES % (AUTO) 8 % (2-9); NEUTROPHILS # (AUTO) 9.96 x10^3/uL (1.8-6.8); NEUTROPHILS % (AUTO) 83 % (42-75); PLATELET COUNT 380 x10^3/uL (130-400); RED BLOOD COUNT 4.52 x10^6/uL (4.38-5.82); RED CELL DISTRIBUTION WIDTH 14.5 % (9.4-14.8)
[2018-03-24 04:43] LABS: ALANINE AMINOTRANSFERASE 14 U/L (12-78); ALBUMIN 3.1 g/dL (3.4-5.0); ANION GAP 7 mmol/L (5-15); CALCIUM 9.5 mg/dL (8.5-10.1); CHLORIDE 105 mmol/L (98-107)
[2018-03-24 04:46] LABS: ALKALINE PHOSPHATASE 91 U/L (45-117); BILIRUBIN,TOTAL 0.6 mg/dL (0.2-1.0); TOTAL PROTEIN 7.2 g/dL (6.4-8.2)
[2018-03-24] MEDS: NYSTATIN 500,000 UNITS/5 ML UDC PO SCH ×4 (05:59→20:12)
[2018-03-24] MEDS: FOLIC ACID 1 MG TABLET PO SCH (08:48)
[2018-03-24] MEDS: FAMOTIDINE 20 MG TABLET PO SCH (08:48)
[2018-03-24] MEDS: CHOLECALCIFEROL 1,000 UNIT TABLET PO SCH (08:48)
[2018-03-24] MEDS: FINASTERIDE 5 MG TABLET PO SCH (08:51)
[2018-03-24 19:08] VITALS: BP 126/56
[2018-03-25 00:53] VITALS: BP 114/65
[2018-03-25] MEDS: ENOXAPARIN 30 MG/0.3 ML SQ SCH ×2 (02:10→16:33)
[2018-03-25] MEDS: AMPICILLIN/SULBACTAM 3 GM in SODIUM CHLORIDE 0.9% 100 ML IV SCH ×4 (02:10→20:22)
[2018-03-25] MEDS: INSULIN LISPRO 100 UNITS/ML, PEN SQ-INSULIN SCH ×4 (03:40→22:01)
[2018-03-25 05:15] LABS: BASOPHILS # (AUTO) 0.03 x10^3/uL (0-0.1); BASOPHILS % (AUTO) 0 % (0-1); EOSINOPHILS # (AUTO) 0.16 x10^3/uL (0-0.4); EOSINOPHILS % (AUTO) 2 % (1-7); LYMPHOCYTES % (AUTO) 18 % (22-44); MD NO; MEAN CORPUSCULAR HEMOGLOBIN 29.6 pg (27.5-34.5); MEAN CORPUSCULAR VOLUME 87.2 fL (81-97); MEAN PLATELET VOLUME 7.1 fL (7.4-10.4); MONOCYTES # (AUTO) 0.84 x10^3/uL (0.2-0.8); MONOCYTES % (AUTO) 10 % (2-9); NEUTROPHILS # (AUTO) 5.76 x10^3/uL (1.8-6.8); NEUTROPHILS % (AUTO) 70 % (42-75); PLATELET COUNT 331 x10^3/uL (130-400); RED BLOOD COUNT 3.66 x10^6/uL (4.38-5.82); RED CELL DISTRIBUTION WIDTH 14.9 % (9.4-14.8)
[2018-03-25 05:27] LABS: ANION GAP 7 mmol/L (5-15); CALCIUM 8.9 mg/dL (8.5-10.1); CHLORIDE 112 mmol/L (98-107); CREATININE 0.85 mg/dL (0.7-1.3)
[2018-03-25] MEDS: NYSTATIN 500,000 UNITS/5 ML UDC PO SCH ×4 (05:58→21:53)
[2018-03-25 07:28] VITALS: BP 135/64
[2018-03-25] MEDS: FINASTERIDE 5 MG TABLET PO SCH (09:00)
[2018-03-25] MEDS: CHOLECALCIFEROL 1,000 UNIT TABLET PO SCH (10:06)
[2018-03-25] MEDS: FAMOTIDINE 20 MG TABLET PO SCH (10:06)
[2018-03-25] MEDS: FOLIC ACID 1 MG TABLET PO SCH (10:06)
[2018-03-25] MEDS ORDERED: LORazepam 2 MG/ML, 1ML ONE (13:34)
[2018-03-25] MEDS ORDERED: LORazepam 2 MG/ML, 1ML IVPush ONE (14:00)
[2018-03-25] MEDS: ERGOCALCIFEROL 50,000 UNIT CAPSULE PO SCH (16:31)
[2018-03-25] MEDS: SODIUM CHLORIDE 0.9% 1,000 ML IV SCH (17:53)
[2018-03-26] MEDS: ENOXAPARIN 30 MG/0.3 ML SQ SCH ×2 (02:06→15:57)
[2018-03-26] MEDS: AMPICILLIN/SULBACTAM 3 GM in SODIUM CHLORIDE 0.9% 100 ML IV SCH ×4 (02:06→22:00)
[2018-03-26 04:00] VITALS: BP 139/72
[2018-03-26] MEDS: INSULIN LISPRO 100 UNITS/ML, PEN SQ-INSULIN SCH ×4 (04:06→22:01)
[2018-03-26 04:44] LABS: BASOPHILS # (AUTO) 0.03 x10^3/uL (0-0.1); BASOPHILS % (AUTO) 0 % (0-1); EOSINOPHILS # (AUTO) 0.36 x10^3/uL (0-0.4); EOSINOPHILS % (AUTO) 4 % (1-7); LYMPHOCYTES # (AUTO) 1.21 x10^3/uL (1-3.4); LYMPHOCYTES % (AUTO) 14 % (22-44); MD NO; MEAN CORPUSCULAR HEMOGLOBIN 29.2 pg (27.5-34.5); MEAN CORPUSCULAR HGB CONC 33.2 g/dL (33.2-36.2); MEAN CORPUSCULAR VOLUME 87.8 fL (81-97); MEAN PLATELET VOLUME 6.9 fL (7.4-10.4); MONOCYTES # (AUTO) 0.81 x10^3/uL (0.2-0.8); MONOCYTES % (AUTO) 9 % (2-9); NEUTROPHILS # (AUTO) 6.42 x10^3/uL (1.8-6.8); NEUTROPHILS % (AUTO) 73 % (42-75); PLATELET COUNT 351 x10^3/uL (130-400); RED BLOOD COUNT 3.71 x10^6/uL (4.38-5.82)
[2018-03-26 04:52] LABS: ANION GAP 4 mmol/L (5-15); CALCIUM 8.8 mg/dL (8.5-10.1); CHLORIDE 109 mmol/L (98-107)
[2018-03-26 04:53] LABS: CREATININE 0.74 mg/dL (0.7-1.3)
[2018-03-26] MEDS: NYSTATIN 500,000 UNITS/5 ML UDC PO SCH ×4 (06:16→21:02)
[2018-03-26] MEDS: SODIUM CHLORIDE 0.9% 1,000 ML IV SCH ×2 (07:49→21:40)
[2018-03-26] MEDS ORDERED: LEVETIRACETAM 100 MG/ML, 5ML IV SCH (09:00)
[2018-03-26] MEDS: FINASTERIDE 5 MG TABLET PO SCH (09:00)
[2018-03-26] MEDS: LEVETIRACETAM 500 MG in SODIUM CHLORIDE 0.9% 100 ML IV SCH ×2 (09:44→21:39)
[2018-03-26] MEDS: FOLIC ACID 1 MG TABLET PO SCH (09:50)
[2018-03-26] MEDS: LACTULOSE 20 GM/30 ML UDC PO SCH (09:51)
[2018-03-27] MEDS: ENOXAPARIN 30 MG/0.3 ML SQ SCH ×2 (04:05→16:55)
[2018-03-27] MEDS: NYSTATIN 500,000 UNITS/5 ML UDC PO SCH ×4 (04:05→20:32)
[2018-03-27] MEDS: AMPICILLIN/SULBACTAM 3 GM in SODIUM CHLORIDE 0.9% 100 ML IV SCH ×4 (04:07→23:23)
[2018-03-27] MEDS: INSULIN LISPRO 100 UNITS/ML, PEN SQ-INSULIN SCH ×4 (04:08→23:24)
[2018-03-27] MEDS: MAGNESIUM HYDROXIDE 8%, 30ML UDC PO PRN (04:09)
[2018-03-27 04:13] VITALS: BP 98/51
[2018-03-27] MEDS: FINASTERIDE 5 MG TABLET PO SCH (09:00)
[2018-03-27] MEDS: LACTULOSE 20 GM/30 ML UDC PO SCH (10:16)
[2018-03-27] MEDS: FOLIC ACID 1 MG TABLET PO SCH (10:16)
[2018-03-27] MEDS: LEVETIRACETAM 500 MG in SODIUM CHLORIDE 0.9% 100 ML IV SCH ×2 (10:16→20:32)
[2018-03-27] MEDS: SODIUM CHLORIDE 0.9% 1,000 ML IV SCH (12:47)
[2018-03-27] MEDS ORDERED: SODIUM CHLORIDE 0.9%, 500ML IVBOLUS ONE (13:00)
[2018-03-27] MEDS ORDERED: SODIUM CHLORIDE 0.9% 1,000 ML IV SCH (13:00)
[2018-03-27] MEDS ORDERED: ZIPRASIDONE 20 MG INJ IM ONE ×2 (15:15→15:30)
[2018-03-27 19:34] VITALS: BP 136/69
[2018-03-27] MEDS ORDERED: KETOROLAC 30 MG/1 ML ONE (23:27)
[2018-03-27] MEDS ORDERED: KETOROLAC 30 MG/1 ML IM PRN (23:30)
[2018-03-28] MEDS ORDERED: HYDROmorphone 1 MG/ML, 1ML IV PRN (01:00)
[2018-03-28] MEDS ORDERED: HYDROmorphone 2 MG/ML, 1ML ONE (01:51)
[2018-03-28] MEDS: SODIUM CHLORIDE 0.9% 1,000 ML IV SCH ×2 (01:57→18:00)
[2018-03-28 03:46] VITALS: BP 151/67
[2018-03-28] MEDS: AMPICILLIN/SULBACTAM 3 GM in SODIUM CHLORIDE 0.9% 100 ML IV SCH ×4 (05:24→23:27)
[2018-03-28] MEDS: ENOXAPARIN 30 MG/0.3 ML SQ SCH ×2 (05:25→17:13)
[2018-03-28] MEDS: INSULIN LISPRO 100 UNITS/ML, PEN SQ-INSULIN SCH ×4 (05:25→23:28)
[2018-03-28] MEDS: NYSTATIN 500,000 UNITS/5 ML UDC PO SCH ×4 (05:25→21:41)
[2018-03-28] MEDS ORDERED: KETOROLAC 30 MG/1 ML IVPush PRN ×2 (05:30)
[2018-03-28] MEDS: LEVETIRACETAM 500 MG in SODIUM CHLORIDE 0.9% 100 ML IV SCH ×2 (08:59→21:41)
[2018-03-28 09:00] VITALS: BP 167/79
[2018-03-28] MEDS: LACTULOSE 20 GM/30 ML UDC PO SCH (09:00)
[2018-03-28] MEDS: FOLIC ACID 1 MG TABLET PO SCH (09:00)
[2018-03-28] MEDS: FINASTERIDE 5 MG TABLET PO SCH (09:00)
[2018-03-28] MEDS ORDERED: PINK LADY ENEMA 490 ML BOTTLE PR ONE (10:00)
[2018-03-28] MEDS: MAGNESIUM HYDROXIDE 8%, 30ML UDC PO PRN (11:17)
[2018-03-28 14:11] VITALS: BP 130/76
[2018-03-28] MEDS: ACETAMINOPHEN 500 MG TABLET PO PRN (15:42)
[2018-03-28 20:07] VITALS: BP 107/63
[2018-03-28] MEDS ORDERED: INSULIN GLARGINE 100 UNITS/ML, PEN SQ-INSULIN SCH (21:00)
[2018-03-29] VITALS (10 sets, daily range): BP systolic 89–133; BP diastolic 50–69
[2018-03-29] MEDS: SODIUM CHLORIDE 0.9% 1,000 ML IV SCH ×2 (00:53→19:48)
[2018-03-29] MEDS: ENOXAPARIN 30 MG/0.3 ML SQ SCH (03:30)
[2018-03-29] MEDS: ACETAMINOPHEN 500 MG TABLET PO PRN (03:30)
[2018-03-29 04:47] LABS: ANION GAP 7 mmol/L (5-15); CALCIUM 8.1 mg/dL (8.5-10.1); CHLORIDE 110 mmol/L (98-107)
[2018-03-29 04:48] LABS: CREATININE 0.67 mg/dL (0.7-1.3)
[2018-03-29 05:30] LABS: MEAN CORPUSCULAR HEMOGLOBIN 29.6 pg (27.5-34.5); MEAN CORPUSCULAR HGB CONC 33.5 g/dL (33.2-36.2); MEAN CORPUSCULAR VOLUME 88.6 fL (81-97); MEAN PLATELET VOLUME 6.6 fL (7.4-10.4); PLATELET COUNT 376 x10^3/uL (130-400); RED BLOOD COUNT 2.37 x10^6/uL (4.38-5.82); RED CELL DISTRIBUTION WIDTH 15.1 % (9.4-14.8)
[2018-03-29] MEDS: NYSTATIN 500,000 UNITS/5 ML UDC PO SCH ×4 (05:30→21:51)
[2018-03-29] MEDS: INSULIN LISPRO 100 UNITS/ML, PEN SQ-INSULIN SCH ×4 (05:30→22:31)
[2018-03-29 06:32] LABS: BASOPHILS # (AUTO) 0.04 x10^3/uL (0-0.1); BASOPHILS % (AUTO) 1 % (0-1); EOSINOPHILS # (AUTO) 0.25 x10^3/uL (0-0.4); EOSINOPHILS % (AUTO) 3 % (1-7); LYMPHOCYTES # (AUTO) 1.55 x10^3/uL (1-3.4); LYMPHOCYTES % (AUTO) 16 % (22-44); MD SCAN; MONOCYTES # (AUTO) 0.84 x10^3/uL (0.2-0.8); MONOCYTES % (AUTO) 9 % (2-9); NEUTROPHILS # (AUTO) 7.05 x10^3/uL (1.8-6.8); NEUTROPHILS % (AUTO) 73 % (42-75)
[2018-03-29 10:00] LABS: OCCULT BLOOD NEGATIVE (NEGATIVE)
[2018-03-29] MEDS: LEVETIRACETAM 500 MG in SODIUM CHLORIDE 0.9% 100 ML IV SCH ×2 (10:29→21:51)
[2018-03-29] MEDS: FOLIC ACID 1 MG TABLET PO SCH (10:33)
[2018-03-29] MEDS: LACTULOSE 20 GM/30 ML UDC PO SCH (10:33)
[2018-03-29] MEDS: FINASTERIDE 5 MG TABLET PO SCH (10:33)
[2018-03-29] MEDS: ACETAMINOPHEN 325 MG TABLET PO PRN ×2 (10:40→16:57)
[2018-03-29 13:10] LABS: ABSOLUTE RETICS # 0.068 x10^6/uL (0.5-1.5); RETICULOCYTE COUNT % 2.82 % (0.5-1.5)
[2018-03-29 13:11] LABS: RED BLOOD COUNT 2.39 x10^6/uL (4.38-5.82)
[2018-03-29 13:36] LABS: FOLATE LEVEL 19.7 ng/mL (3.1-17.5)
[2018-03-29] MEDS: INSULIN GLARGINE 100 UNITS/ML, PEN SQ-INSULIN SCH (22:30)
[2018-03-30] MEDS: ACETAMINOPHEN 325 MG TABLET PO PRN ×3 (00:58→21:59)
[2018-03-30 02:49] VITALS: BP 127/69
[2018-03-30] MEDS: INSULIN LISPRO 100 UNITS/ML, PEN SQ-INSULIN SCH ×4 (05:18→23:06)
[2018-03-30 05:51] LABS: ALANINE AMINOTRANSFERASE 9 U/L (12-78); ALBUMIN 2.1 g/dL (3.4-5.0); ANION GAP 7 mmol/L (5-15); CALCIUM 8.5 mg/dL (8.5-10.1); CHLORIDE 111 mmol/L (98-107); CREATININE 0.71 mg/dL (0.7-1.3)
[2018-03-30 05:55] LABS: ALKALINE PHOSPHATASE 58 U/L (45-117); BILIRUBIN,TOTAL 0.2 mg/dL (0.2-1.0); PREALBUMIN 11.3 mg/dL (20.0-40.0); TOTAL PROTEIN 5.4 g/dL (6.4-8.2)
[2018-03-30 05:56] LABS: MEAN CORPUSCULAR HEMOGLOBIN 29.6 pg (27.5-34.5); MEAN CORPUSCULAR HGB CONC 33.1 g/dL (33.2-36.2); MEAN CORPUSCULAR VOLUME 89.4 fL (81-97); MEAN PLATELET VOLUME 7.6 fL (7.4-10.4); PLATELET COUNT 342 x10^3/uL (130-400); RED BLOOD COUNT 2.44 x10^6/uL (4.38-5.82); RED CELL DISTRIBUTION WIDTH 15.1 % (9.4-14.8)
[2018-03-30] MEDS: NYSTATIN 500,000 UNITS/5 ML UDC PO SCH ×4 (06:25→21:18)
[2018-03-30 06:33] LABS: BASOPHILS % (AUTO) 1 % (0-1); EOSINOPHILS # (AUTO) 0.31 x10^3/uL (0-0.4); EOSINOPHILS % (AUTO) 3 % (1-7); LYMPHOCYTES # (AUTO) 1.39 x10^3/uL (1-3.4); LYMPHOCYTES % (AUTO) 15 % (22-44); MD SCAN; MONOCYTES # (AUTO) 0.66 x10^3/uL (0.2-0.8); MONOCYTES % (AUTO) 7 % (2-9); NEUTROPHILS # (AUTO) 7.08 x10^3/uL (1.8-6.8); NEUTROPHILS % (AUTO) 74 % (42-75)
[2018-03-30 07:31] VITALS: BP 121/63
[2018-03-30] MEDS: FINASTERIDE 5 MG TABLET PO SCH (10:41)
[2018-03-30] MEDS: ENOXAPARIN 40 MG/0.4 ML SQ SCH (10:41)
[2018-03-30] MEDS: LACTULOSE 20 GM/30 ML UDC PO SCH (10:41)
[2018-03-30] MEDS: FOLIC ACID 1 MG TABLET PO SCH (10:41)
[2018-03-30] MEDS: LEVETIRACETAM 500 MG in SODIUM CHLORIDE 0.9% 100 ML IV SCH ×2 (10:41→21:51)
[2018-03-30 13:42] VITALS: BP 153/71
[2018-03-30] MEDS: SODIUM CHLORIDE 0.9% 1,000 ML IV SCH (15:06)
[2018-03-30 20:00] VITALS: BP 136/68
[2018-03-30] MEDS: INSULIN GLARGINE 100 UNITS/ML, PEN SQ-INSULIN SCH (23:05)
[2018-03-31] MEDS: NYSTATIN 500,000 UNITS/5 ML UDC PO SCH ×4 (05:58→20:37)
[2018-03-31] MEDS: INSULIN LISPRO 100 UNITS/ML, PEN SQ-INSULIN SCH ×4 (05:58→23:00)
[2018-03-31 07:15] VITALS: BP 145/66
[2018-03-31] MEDS: FINASTERIDE 5 MG TABLET PO SCH (09:56)
[2018-03-31] MEDS: ENOXAPARIN 40 MG/0.4 ML SQ SCH (10:12)
[2018-03-31] MEDS: LACTULOSE 20 GM/30 ML UDC PO SCH (10:12)
[2018-03-31] MEDS: FOLIC ACID 1 MG TABLET PO SCH (10:12)
[2018-03-31] MEDS: SODIUM CHLORIDE 0.9% 1,000 ML IV SCH (10:49)
[2018-03-31] MEDS: LEVETIRACETAM 500 MG in SODIUM CHLORIDE 0.9% 100 ML IV SCH ×2 (11:05→22:00)
[2018-03-31 11:28] LABS: BASOPHILS # (AUTO) 0.04 x10^3/uL (0-0.1); BASOPHILS % (AUTO) 0 % (0-1); EOSINOPHILS # (AUTO) 0.24 x10^3/uL (0-0.4); EOSINOPHILS % (AUTO) 3 % (1-7); LYMPHOCYTES # (AUTO) 1.38 x10^3/uL (1-3.4); LYMPHOCYTES % (AUTO) 15 % (22-44); MD NO; MEAN CORPUSCULAR HEMOGLOBIN 30.5 pg (27.5-34.5); MEAN CORPUSCULAR HGB CONC 33.6 g/dL (33.2-36.2); MEAN CORPUSCULAR VOLUME 90.9 fL (81-97); MEAN PLATELET VOLUME 6.8 fL (7.4-10.4); MONOCYTES # (AUTO) 0.81 x10^3/uL (0.2-0.8); MONOCYTES % (AUTO) 9 % (2-9); NEUTROPHILS % (AUTO) 73 % (42-75); PLATELET COUNT 454 x10^3/uL (130-400); RED BLOOD COUNT 2.76 x10^6/uL (4.38-5.82); RED CELL DISTRIBUTION WIDTH 15.6 % (9.4-14.8)
[2018-03-31 11:32] LABS: ANION GAP 5 mmol/L (5-15); CALCIUM 8.5 mg/dL (8.5-10.1); CHLORIDE 106 mmol/L (98-107); CREATININE 0.62 mg/dL (0.7-1.3)
[2018-03-31 13:10] VITALS: BP 122/65
[2018-03-31] MEDS: INSULIN GLARGINE 100 UNITS/ML, PEN SQ-INSULIN SCH (21:01)
[2018-03-31 22:03] VITALS: BP 105/65
[2018-04-01] VITALS (13 sets, daily range): BP systolic 97–155; BP diastolic 60–77
[2018-04-01 04:43] LABS: BASOPHILS # (AUTO) 0.02 x10^3/uL (0-0.1); BASOPHILS % (AUTO) 0 % (0-1); EOSINOPHILS # (AUTO) 0.14 x10^3/uL (0-0.4); EOSINOPHILS % (AUTO) 2 % (1-7); LYMPHOCYTES # (AUTO) 1.11 x10^3/uL (1-3.4); LYMPHOCYTES % (AUTO) 13 % (22-44); MD NO; MEAN CORPUSCULAR HEMOGLOBIN 30.6 pg (27.5-34.5); MEAN CORPUSCULAR HGB CONC 33.3 g/dL (33.2-36.2); MEAN CORPUSCULAR VOLUME 91.7 fL (81-97); MEAN PLATELET VOLUME 6.6 fL (7.4-10.4); MONOCYTES # (AUTO) 0.87 x10^3/uL (0.2-0.8); MONOCYTES % (AUTO) 10 % (2-9); NEUTROPHILS # (AUTO) 6.22 x10^3/uL (1.8-6.8); NEUTROPHILS % (AUTO) 74 % (42-75); PLATELET COUNT 427 x10^3/uL (130-400); RED BLOOD COUNT 2.54 x10^6/uL (4.38-5.82); RED CELL DISTRIBUTION WIDTH 15.7 % (9.4-14.8)
[2018-04-01 04:55] LABS: ANION GAP 7 mmol/L (5-15); CALCIUM 8.4 mg/dL (8.5-10.1); CHLORIDE 109 mmol/L (98-107)
[2018-04-01 04:59] LABS: CREATININE 0.61 mg/dL (0.7-1.3)
[2018-04-01] MEDS: INSULIN LISPRO 100 UNITS/ML, PEN SQ-INSULIN SCH ×4 (05:00→21:00)
[2018-04-01] MEDS: NYSTATIN 500,000 UNITS/5 ML UDC PO SCH ×4 (06:00→20:05)
[2018-04-01] MEDS: SODIUM CHLORIDE 0.9% 1,000 ML IV SCH (07:22)
[2018-04-01] MEDS: LEVETIRACETAM 500 MG in SODIUM CHLORIDE 0.9% 100 ML IV SCH ×2 (09:17→22:00)
[2018-04-01] MEDS: LACTULOSE 20 GM/30 ML UDC PO SCH (09:30)
[2018-04-01] MEDS: FINASTERIDE 5 MG TABLET PO SCH (09:30)
[2018-04-01] MEDS: FOLIC ACID 1 MG TABLET PO SCH (09:30)
[2018-04-01] MEDS: ENOXAPARIN 40 MG/0.4 ML SQ SCH (09:31)
[2018-04-01] MEDS: MAGNESIUM HYDROXIDE 8%, 30ML UDC PO PRN (12:55)
[2018-04-01] MEDS: ERGOCALCIFEROL 50,000 UNIT CAPSULE PO SCH (14:14)
[2018-04-01] MEDS: ACETAMINOPHEN 325 MG TABLET PO PRN (14:14)
[2018-04-01] MEDS: INSULIN GLARGINE 100 UNITS/ML, PEN SQ-INSULIN SCH (21:28)
[2018-04-02 02:12] VITALS: BP 145/75
[2018-04-02] MEDS: INSULIN LISPRO 100 UNITS/ML, PEN SQ-INSULIN SCH ×4 (03:00→21:00)
[2018-04-02 04:27] LABS: BASOPHILS # (AUTO) 0.06 x10^3/uL (0-0.1); BASOPHILS % (AUTO) 1 % (0-1); EOSINOPHILS # (AUTO) 0.19 x10^3/uL (0-0.4); EOSINOPHILS % (AUTO) 3 % (1-7); LYMPHOCYTES # (AUTO) 1.19 x10^3/uL (1-3.4); LYMPHOCYTES % (AUTO) 16 % (22-44); MD NO; MEAN CORPUSCULAR HEMOGLOBIN 31.6 pg (27.5-34.5); MEAN CORPUSCULAR HGB CONC 34.1 g/dL (33.2-36.2); MEAN CORPUSCULAR VOLUME 92.5 fL (81-97); MEAN PLATELET VOLUME 6.6 fL (7.4-10.4); MONOCYTES # (AUTO) 0.84 x10^3/uL (0.2-0.8); MONOCYTES % (AUTO) 11 % (2-9); NEUTROPHILS # (AUTO) 5.38 x10^3/uL (1.8-6.8); NEUTROPHILS % (AUTO) 70 % (42-75); PLATELET COUNT 420 x10^3/uL (130-400); RED BLOOD COUNT 3.09 x10^6/uL (4.38-5.82); RED CELL DISTRIBUTION WIDTH 15.1 % (9.4-14.8)
[2018-04-02 04:42] LABS: ANION GAP 7 mmol/L (5-15); CALCIUM 8.3 mg/dL (8.5-10.1); CHLORIDE 109 mmol/L (98-107)
[2018-04-02] MEDS: NYSTATIN 500,000 UNITS/5 ML UDC PO SCH ×4 (06:00→21:17)
[2018-04-02 07:50] LABS: ABSOLUTE RETICS # 0.164 x10^6/uL (0.5-1.5); RED BLOOD COUNT 3.36 x10^6/uL (4.38-5.82); RETICULOCYTE COUNT % 4.88 % (0.5-1.5)
[2018-04-02 08:02] LABS: BILIRUBIN, DIRECT 0.1 mg/dL (0.1-0.2)
[2018-04-02 08:03] LABS: BILIRUBIN,INDIRECT 0.4 mg/dL (0.0-2.0); BILIRUBIN,TOTAL 0.5 mg/dL (0.2-1.0)
[2018-04-02 08:11] VITALS: BP 125/70
[2018-04-02] MEDS: FOLIC ACID 1 MG TABLET PO SCH (09:00)
[2018-04-02] MEDS: LEVETIRACETAM 500 MG in SODIUM CHLORIDE 0.9% 100 ML IV SCH ×2 (10:00→22:00)
[2018-04-02] MEDS: FINASTERIDE 5 MG TABLET PO SCH (10:18)
[2018-04-02] MEDS: LACTULOSE 20 GM/30 ML UDC PO SCH (10:18)
[2018-04-02] MEDS: ENOXAPARIN 40 MG/0.4 ML SQ SCH (10:19)
[2018-04-02 14:30] VITALS: BP 126/73
[2018-04-02] MEDS: SODIUM CHLORIDE 0.9% 1,000 ML IV SCH (18:34)
[2018-04-02 19:22] VITALS: BP 146/76
[2018-04-02] MEDS ORDERED: INSULIN GLARGINE 100 UNITS/ML, PEN SQ-INSULIN SCH (21:00)
[2018-04-03 00:01] VITALS: BP 161/80
[2018-04-03] MEDS: INSULIN LISPRO 100 UNITS/ML, PEN SQ-INSULIN SCH ×4 (03:00→20:37)
[2018-04-03] MEDS ORDERED: DEXTROSE 50%, 50ML SYRINGE ONE (03:28)
[2018-04-03] MEDS ORDERED: DEXTROSE 4 GM TAB.CHEW PO PRN (03:30)
[2018-04-03] MEDS ORDERED: GLUCAGON 1 MG IM PRN (03:30)
[2018-04-03] MEDS: DEXTROSE 50%, 50ML SYRINGE IVPush PRN ×2 (03:31→08:16)
[2018-04-03] MEDS: NYSTATIN 500,000 UNITS/5 ML UDC PO SCH ×4 (05:50→20:37)
[2018-04-03 07:25] LABS: BASOPHILS # (AUTO) 0.02 x10^3/uL (0-0.1); BASOPHILS % (AUTO) 0 % (0-1); EOSINOPHILS # (AUTO) 0.16 x10^3/uL (0-0.4); EOSINOPHILS % (AUTO) 2 % (1-7); LYMPHOCYTES # (AUTO) 1.13 x10^3/uL (1-3.4); LYMPHOCYTES % (AUTO) 17 % (22-44); MD NO; MEAN CORPUSCULAR HEMOGLOBIN 30.4 pg (27.5-34.5); MEAN CORPUSCULAR HGB CONC 33.3 g/dL (33.2-36.2); MEAN CORPUSCULAR VOLUME 91.4 fL (81-97); MEAN PLATELET VOLUME 6.5 fL (7.4-10.4); MONOCYTES # (AUTO) 0.67 x10^3/uL (0.2-0.8); MONOCYTES % (AUTO) 10 % (2-9); NEUTROPHILS # (AUTO) 4.85 x10^3/uL (1.8-6.8); NEUTROPHILS % (AUTO) 71 % (42-75); PLATELET COUNT 476 x10^3/uL (130-400); RED BLOOD COUNT 3.39 x10^6/uL (4.38-5.82); RED CELL DISTRIBUTION WIDTH 15.8 % (9.4-14.8)
[2018-04-03 07:40] LABS: ANION GAP 8 mmol/L (5-15); CALCIUM 9.3 mg/dL (8.5-10.1); CHLORIDE 108 mmol/L (98-107); CREATININE 0.68 mg/dL (0.7-1.3)
[2018-04-03 08:00] VITALS: BP 115/67
[2018-04-03] MEDS: SODIUM CHLORIDE FLUSH 10ML SYR IVF SCH ×2 (08:16→20:37)
[2018-04-03] MEDS: FOLIC ACID 1 MG TABLET PO SCH (09:00)
[2018-04-03] MEDS: ENOXAPARIN 40 MG/0.4 ML SQ SCH (09:00)
[2018-04-03] MEDS: FINASTERIDE 5 MG TABLET PO SCH (09:00)
[2018-04-03] MEDS: LACTULOSE 20 GM/30 ML UDC PO SCH (09:00)
[2018-04-03] MEDS: LEVETIRACETAM 500 MG in SODIUM CHLORIDE 0.9% 100 ML IV SCH ×2 (10:00→22:00)
[2018-04-03] MEDS ORDERED: LIDOCAINE-MPF 2%, 2ML ONE (11:44)
[2018-04-03] MEDS ORDERED: FENTANYL PF 100 MCG/2ML ONE ×2 (11:57)
[2018-04-03] MEDS ORDERED: MIDAZOLAM 1 MG/ML, 5ML ONE (11:57)
[2018-04-03] MEDS ORDERED: NALOXONE 1 MG/ML, 2ML ONE (11:58)
[2018-04-03] MEDS ORDERED: FLUMAZENIL 0.1 MG/1 ML, 5ML ONE (11:58)
[2018-04-03 14:00] VITALS: BP 124/71
[2018-04-03] MEDS: SODIUM CHLORIDE 0.9% 1,000 ML IV SCH (15:00)
[2018-04-03] MEDS: MAGNESIUM HYDROXIDE 8%, 30ML UDC PO PRN (16:16)
[2018-04-03] MEDS: ACETAMINOPHEN 325 MG TABLET PO PRN (16:16)
[2018-04-03 19:54] VITALS: BP 149/80
[2018-04-04 02:36] VITALS: BP 126/69
[2018-04-04] MEDS: INSULIN LISPRO 100 UNITS/ML, PEN SQ-INSULIN SCH ×4 (03:30→19:23)
[2018-04-04] MEDS: ACETAMINOPHEN 325 MG TABLET PO PRN ×2 (04:29→10:33)
[2018-04-04 05:20] LABS: BASOPHILS # (AUTO) 0.03 x10^3/uL (0-0.1); BASOPHILS % (AUTO) 0 % (0-1); EOSINOPHILS # (AUTO) 0.13 x10^3/uL (0-0.4); EOSINOPHILS % (AUTO) 2 % (1-7); LYMPHOCYTES # (AUTO) 1.07 x10^3/uL (1-3.4); LYMPHOCYTES % (AUTO) 14 % (22-44); MD NO; MEAN CORPUSCULAR HEMOGLOBIN 30.7 pg (27.5-34.5); MEAN CORPUSCULAR HGB CONC 33.4 g/dL (33.2-36.2); MEAN CORPUSCULAR VOLUME 91.9 fL (81-97); MEAN PLATELET VOLUME 6.4 fL (7.4-10.4); MONOCYTES # (AUTO) 0.67 x10^3/uL (0.2-0.8); MONOCYTES % (AUTO) 9 % (2-9); NEUTROPHILS # (AUTO) 5.57 x10^3/uL (1.8-6.8); NEUTROPHILS % (AUTO) 75 % (42-75); PLATELET COUNT 480 x10^3/uL (130-400); RED BLOOD COUNT 3.54 x10^6/uL (4.38-5.82); RED CELL DISTRIBUTION WIDTH 15.8 % (9.4-14.8)
[2018-04-04 05:29] LABS: CHLORIDE 106 mmol/L (98-107)
[2018-04-04 05:35] LABS: ANION GAP 8 mmol/L (5-15); CALCIUM 8.9 mg/dL (8.5-10.1); CREATININE 0.66 mg/dL (0.7-1.3)
[2018-04-04] MEDS: D5%-0.45% NACL 1,000 ML IV SCH (06:08)
[2018-04-04] MEDS: NYSTATIN 500,000 UNITS/5 ML UDC PO SCH ×4 (06:10→22:24)
[2018-04-04 07:00] VITALS: BP 96/59
[2018-04-04] MEDS: LEVETIRACETAM 500 MG in SODIUM CHLORIDE 0.9% 100 ML IV SCH ×2 (07:19→18:59)
[2018-04-04] MEDS: FOLIC ACID 1 MG TABLET PO SCH (08:44)
[2018-04-04] MEDS: LACTULOSE 20 GM/30 ML UDC PO SCH (08:44)
[2018-04-04] MEDS: FINASTERIDE 5 MG TABLET PO SCH (08:44)
[2018-04-04] MEDS: ENOXAPARIN 40 MG/0.4 ML SQ SCH (08:46)
[2018-04-04] MEDS: SODIUM CHLORIDE FLUSH 10ML SYR IVF SCH ×2 (08:47→21:00)
[2018-04-04] MEDS: SODIUM CHLORIDE 0.9% 1,000 ML IV SCH (10:33)
[2018-04-04 12:15] VITALS: BP 111/63
[2018-04-04] MEDS: MAGNESIUM HYDROXIDE 8%, 30ML UDC PO PRN (14:53)
[2018-04-04 20:00] VITALS: BP 97/59
[2018-04-05] MEDS: D5%-0.45% NACL 1,000 ML IV SCH (02:05)
[2018-04-05 02:12] VITALS: BP 139/63
[2018-04-05] MEDS: INSULIN LISPRO 100 UNITS/ML, PEN SQ-INSULIN SCH ×5 (03:00→22:43)
[2018-04-05 05:11] LABS: BASOPHILS # (AUTO) 0.03 x10^3/uL (0-0.1); BASOPHILS % (AUTO) 0 % (0-1); EOSINOPHILS # (AUTO) 0.15 x10^3/uL (0-0.4); EOSINOPHILS % (AUTO) 2 % (1-7); LYMPHOCYTES % (AUTO) 18 % (22-44); MD NO; MEAN CORPUSCULAR HEMOGLOBIN 31.6 pg (27.5-34.5); MEAN CORPUSCULAR VOLUME 92.8 fL (81-97); MEAN PLATELET VOLUME 6.9 fL (7.4-10.4); MONOCYTES # (AUTO) 0.58 x10^3/uL (0.2-0.8); MONOCYTES % (AUTO) 8 % (2-9); NEUTROPHILS # (AUTO) 5.14 x10^3/uL (1.8-6.8); NEUTROPHILS % (AUTO) 72 % (42-75); PLATELET COUNT 441 x10^3/uL (130-400)
[2018-04-05 05:19] LABS: ALANINE AMINOTRANSFERASE 13 U/L (12-78); ALBUMIN 2.3 g/dL (3.4-5.0); ANION GAP 9 mmol/L (5-15); CALCIUM 8.6 mg/dL (8.5-10.1); CHLORIDE 108 mmol/L (98-107)
[2018-04-05 05:21] LABS: ALKALINE PHOSPHATASE 75 U/L (45-117); BILIRUBIN,TOTAL 0.4 mg/dL (0.2-1.0); CREATININE 0.67 mg/dL (0.7-1.3); TOTAL PROTEIN 5.8 g/dL (6.4-8.2)
[2018-04-05 07:32] VITALS: BP 119/71
[2018-04-05] MEDS: NYSTATIN 500,000 UNITS/5 ML UDC PO SCH ×4 (07:35→22:42)
[2018-04-05] MEDS: ACETAMINOPHEN 325 MG TABLET PO PRN (07:35)
[2018-04-05] MEDS: SODIUM CHLORIDE FLUSH 10ML SYR IVF SCH ×2 (07:37→21:00)
[2018-04-05] MEDS: FINASTERIDE 5 MG TABLET PO SCH (07:50)
[2018-04-05] MEDS: LACTULOSE 20 GM/30 ML UDC PO SCH (07:50)
[2018-04-05] MEDS: FOLIC ACID 1 MG TABLET PO SCH (07:50)
[2018-04-05] MEDS: ENOXAPARIN 40 MG/0.4 ML SQ SCH (08:18)
[2018-04-05] MEDS: NEUTRA PHOS K 250 MG TABLET PO SCH ×2 (08:23→22:42)
[2018-04-05] MEDS: SODIUM CHLORIDE 0.9% 1,000 ML IV SCH (08:23)
[2018-04-05] MEDS: LEVETIRACETAM 500 MG in SODIUM CHLORIDE 0.9% 100 ML IV SCH ×2 (10:00→22:00)
[2018-04-05 14:00] VITALS: BP 112/63
[2018-04-05] MEDS: SODIUM CHLORIDE 0.45% 1,000 ML IV SCH (14:30)
[2018-04-05 19:00] VITALS: BP 134/72
[2018-04-05] MEDS ORDERED: BISACODYL 10 MG SUPP PR ONE (21:00)
[2018-04-06 00:31] VITALS: BP 134/74
[2018-04-06 06:42] VITALS: BP 152/62
[2018-04-06] MEDS: INSULIN LISPRO 100 UNITS/ML, PEN SQ-INSULIN SCH ×4 (07:00→21:39)
[2018-04-06] MEDS: NYSTATIN 500,000 UNITS/5 ML UDC PO SCH ×4 (08:18→21:38)
[2018-04-06] MEDS: FOLIC ACID 1 MG TABLET PO SCH (08:19)
[2018-04-06] MEDS: LACTULOSE 20 GM/30 ML UDC PO SCH (08:19)
[2018-04-06] MEDS: NEUTRA PHOS K 250 MG TABLET PO SCH ×2 (08:20→21:38)
[2018-04-06] MEDS: FINASTERIDE 5 MG TABLET PO SCH (08:20)
[2018-04-06] MEDS: ENOXAPARIN 40 MG/0.4 ML SQ SCH (08:20)
[2018-04-06] MEDS: SODIUM CHLORIDE FLUSH 10ML SYR IVF SCH ×2 (08:21→21:39)
[2018-04-06] MEDS: LEVETIRACETAM 500 MG in SODIUM CHLORIDE 0.9% 100 ML IV SCH ×2 (08:24→22:00)
[2018-04-06] MEDS: SODIUM CHLORIDE 0.45% 1,000 ML IV SCH (12:16)
[2018-04-06 14:12] VITALS: BP_SYST 104; BP_SYST 80; BP_SYST 89; BP_DIAS 39; BP_DIAS 47; BP_DIAS 61
[2018-04-06 19:15] VITALS: BP 123/67
[2018-04-07 01:54] VITALS: BP 153/75
[2018-04-07] MEDS: NYSTATIN 500,000 UNITS/5 ML UDC PO SCH ×4 (06:42→20:55)
[2018-04-07] MEDS: INSULIN LISPRO 100 UNITS/ML, PEN SQ-INSULIN SCH ×4 (07:00→20:57)
[2018-04-07 07:50] VITALS: BP 163/16
[2018-04-07] MEDS: SODIUM CHLORIDE FLUSH 10ML SYR IVF SCH ×2 (07:55→20:57)
[2018-04-07] MEDS: LEVETIRACETAM 500 MG in SODIUM CHLORIDE 0.9% 100 ML IV SCH (07:59)
[2018-04-07] MEDS: SODIUM CHLORIDE 0.45% 1,000 ML IV SCH (08:15)
[2018-04-07] MEDS: FOLIC ACID 1 MG TABLET PO SCH (08:16)
[2018-04-07] MEDS: LACTULOSE 20 GM/30 ML UDC PO SCH (08:16)
[2018-04-07] MEDS: FINASTERIDE 5 MG TABLET PO SCH (08:16)
[2018-04-07] MEDS: ENOXAPARIN 40 MG/0.4 ML SQ SCH (08:16)
[2018-04-07 10:48] VITALS: BP_SYST 150; BP_SYST 157; BP_DIAS 74
[2018-04-07 13:23] VITALS: BP 121/67
[2018-04-07 15:04] VITALS: BP_SYST 116; BP_SYST 125; BP_SYST 98; BP_DIAS 54; BP_DIAS 75; BP_DIAS 77
[2018-04-07 18:35] VITALS: BP 141/84
[2018-04-07] MEDS: ACETAMINOPHEN 325 MG TABLET PO PRN (20:55)
[2018-04-08 01:13] VITALS: BP 149/76
[2018-04-08 04:54] LABS: CHLORIDE 108 mmol/L (98-107)
[2018-04-08 04:58] LABS: ANION GAP 6 mmol/L (5-15); CALCIUM 8.9 mg/dL (8.5-10.1); CREATININE 0.68 mg/dL (0.7-1.3)
[2018-04-08 04:59] LABS: ALANINE AMINOTRANSFERASE 9 U/L (12-78); ALBUMIN 2.6 g/dL (3.4-5.0); ALKALINE PHOSPHATASE 78 U/L (45-117); BILIRUBIN,TOTAL 0.4 mg/dL (0.2-1.0); HEMOGLOBIN A1C 6.1 % (4.2-6.3); TOTAL PROTEIN 6.3 g/dL (6.4-8.2)
[2018-04-08] MEDS: NYSTATIN 500,000 UNITS/5 ML UDC PO SCH ×4 (05:05→22:26)
[2018-04-08 05:08] LABS: BASOPHILS # (AUTO) 0.06 x10^3/uL (0-0.1); BASOPHILS % (AUTO) 1 % (0-1); EOSINOPHILS # (AUTO) 0.18 x10^3/uL (0-0.4); EOSINOPHILS % (AUTO) 4 % (1-7); LYMPHOCYTES # (AUTO) 1.32 x10^3/uL (1-3.4); LYMPHOCYTES % (AUTO) 25 % (22-44); MD NO; MEAN CORPUSCULAR HEMOGLOBIN 30.6 pg (27.5-34.5); MEAN CORPUSCULAR HGB CONC 33.3 g/dL (33.2-36.2); MEAN CORPUSCULAR VOLUME 91.8 fL (81-97); MEAN PLATELET VOLUME 6.9 fL (7.4-10.4); MONOCYTES # (AUTO) 0.54 x10^3/uL (0.2-0.8); MONOCYTES % (AUTO) 10 % (2-9); NEUTROPHILS # (AUTO) 3.15 x10^3/uL (1.8-6.8); NEUTROPHILS % (AUTO) 60 % (42-75); PLATELET COUNT 470 x10^3/uL (130-400); RED BLOOD COUNT 3.48 x10^6/uL (4.38-5.82); RED CELL DISTRIBUTION WIDTH 15.6 % (9.4-14.8)
[2018-04-08 07:34] VITALS: BP 156/81
[2018-04-08] MEDS: SODIUM CHLORIDE 0.9% 1,000 ML IV SCH ×2 (08:32→18:00)
[2018-04-08] MEDS: INSULIN LISPRO 100 UNITS/ML, PEN SQ-INSULIN SCH ×4 (08:40→21:00)
[2018-04-08] MEDS: SODIUM CHLORIDE FLUSH 10ML SYR IVF SCH ×2 (08:41→22:46)
[2018-04-08] MEDS: ENOXAPARIN 40 MG/0.4 ML SQ SCH (08:47)
[2018-04-08] MEDS: FOLIC ACID 1 MG TABLET PO SCH (09:00)
[2018-04-08] MEDS: FINASTERIDE 5 MG TABLET PO SCH (09:00)
[2018-04-08] MEDS: LACTULOSE 20 GM/30 ML UDC PO SCH (09:00)
[2018-04-08] MEDS: MAGNESIUM HYDROXIDE 8%, 30ML UDC PO PRN (09:55)
[2018-04-08 14:00] VITALS: BP_SYST 132; BP_SYST 133; BP_SYST 96; BP_SYST 99; BP_DIAS 61; BP_DIAS 62; BP_DIAS 73; BP_DIAS 83
[2018-04-08] MEDS: ERGOCALCIFEROL 50,000 UNIT CAPSULE PO SCH (15:19)
[2018-04-08 20:35] VITALS: BP 144/78
[2018-04-09 04:06] VITALS: BP 156/82
[2018-04-09] MEDS: SODIUM CHLORIDE 0.9% 1,000 ML IV SCH ×2 (04:09→14:00)
[2018-04-09] MEDS: NYSTATIN 500,000 UNITS/5 ML UDC PO SCH ×4 (06:06→21:00)
[2018-04-09] MEDS: INSULIN LISPRO 100 UNITS/ML, PEN SQ-INSULIN SCH ×4 (07:00→21:00)
[2018-04-09 08:17] VITALS: BP_SYST 118; BP_SYST 132; BP_DIAS 63; BP_DIAS 70
[2018-04-09] MEDS: LACTULOSE 20 GM/30 ML UDC PO SCH (09:00)
[2018-04-09] MEDS: SODIUM CHLORIDE FLUSH 10ML SYR IVF SCH ×2 (09:00→22:11)
[2018-04-09] MEDS: ENOXAPARIN 40 MG/0.4 ML SQ SCH (10:17)
[2018-04-09] MEDS: FOLIC ACID 1 MG TABLET PO SCH (10:17)
[2018-04-09] MEDS: FINASTERIDE 5 MG TABLET PO SCH (10:17)
[2018-04-09 11:13] VITALS: BP 119/63
[2018-04-09 11:14] VITALS: BP 123/65
[2018-04-09 11:15] VITALS: BP 125/55
[2018-04-09 19:19] VITALS: BP 162/93
[2018-04-09] MEDS ORDERED: D5%-0.45% NACL 1,000 ML IV SCH (23:00)
[2018-04-10 00:50] VITALS: BP 149/74
[2018-04-10] MEDS: NYSTATIN 500,000 UNITS/5 ML UDC PO SCH ×4 (05:34→22:45)
[2018-04-10] MEDS: INSULIN LISPRO 100 UNITS/ML, PEN SQ-INSULIN SCH ×4 (07:00→21:00)
[2018-04-10 07:10] VITALS: BP 121/62
[2018-04-10 09:35] VITALS: BP_SYST 103; BP_SYST 125; BP_SYST 130; BP_DIAS 61; BP_DIAS 71; BP_DIAS 72
[2018-04-10] MEDS: FOLIC ACID 1 MG TABLET PO SCH (11:24)
[2018-04-10] MEDS: FINASTERIDE 5 MG TABLET PO SCH (11:24)
[2018-04-10] MEDS: LACTULOSE 20 GM/30 ML UDC PO SCH (11:24)
[2018-04-10] MEDS: SODIUM CHLORIDE FLUSH 10ML SYR IVF SCH ×2 (14:03→22:54)
[2018-04-10] MEDS: SODIUM CHLORIDE 0.9% 1,000 ML IV SCH ×3 (14:03→23:10)
[2018-04-10] MEDS: ENOXAPARIN 40 MG/0.4 ML SQ SCH (14:04)
[2018-04-10 14:16] VITALS: BP 102/64
[2018-04-10] MEDS: MAGNESIUM HYDROXIDE 8%, 30ML UDC PO PRN (18:00)
[2018-04-10 21:10] VITALS: BP 148/85
[2018-04-10] MEDS: ACETAMINOPHEN 325 MG TABLET PO PRN (22:51)
[2018-04-11 00:59] VITALS: BP 129/56
[2018-04-11] MEDS: INSULIN LISPRO 100 UNITS/ML, PEN SQ-INSULIN SCH ×4 (07:00→21:00)
[2018-04-11 07:44] VITALS: BP 154/77
[2018-04-11] MEDS: SODIUM CHLORIDE FLUSH 10ML SYR IVF SCH ×2 (09:00→22:02)
[2018-04-11] MEDS: LACTULOSE 20 GM/30 ML UDC PO SCH (10:16)
[2018-04-11] MEDS: SODIUM CHLORIDE 0.9% 1,000 ML IV SCH ×2 (10:17→19:00)
[2018-04-11] MEDS: NYSTATIN 500,000 UNITS/5 ML UDC PO SCH ×4 (10:17→22:02)
[2018-04-11] MEDS: FINASTERIDE 5 MG TABLET PO SCH (10:17)
[2018-04-11] MEDS: FOLIC ACID 1 MG TABLET PO SCH (10:17)
[2018-04-11] MEDS: ENOXAPARIN 40 MG/0.4 ML SQ SCH (11:37)
[2018-04-11] MEDS: ACETAMINOPHEN 325 MG TABLET PO PRN ×2 (12:40→21:33)
[2018-04-11 12:55] VITALS: BP 145/75
[2018-04-11 18:32] VITALS: BP 135/74
[2018-04-11 22:42] LABS: MICROSCOPIC INDICATED
[2018-04-12] MEDS: CEFTRIAXONE PMX 1GM/50ML 50 ML IV SCH ×2 (00:10→22:32)
[2018-04-12 02:25] VITALS: BP 131/78
[2018-04-12] MEDS: SODIUM CHLORIDE 0.9% 1,000 ML IV SCH ×2 (04:10→14:42)
[2018-04-12 05:26] LABS: BASOPHILS % (AUTO) 1 % (0-1); EOSINOPHILS # (AUTO) 0.06 x10^3/uL (0-0.4); EOSINOPHILS % (AUTO) 1 % (1-7); LYMPHOCYTES # (AUTO) 0.98 x10^3/uL (1-3.4); LYMPHOCYTES % (AUTO) 8 % (22-44); MD NO; MEAN CORPUSCULAR HEMOGLOBIN 30.2 pg (27.5-34.5); MEAN CORPUSCULAR HGB CONC 33.1 g/dL (33.2-36.2); MEAN CORPUSCULAR VOLUME 91.4 fL (81-97); MEAN PLATELET VOLUME 7.2 fL (7.4-10.4); MONOCYTES # (AUTO) 0.73 x10^3/uL (0.2-0.8); MONOCYTES % (AUTO) 6 % (2-9); NEUTROPHILS # (AUTO) 10.46 x10^3/uL (1.8-6.8); NEUTROPHILS % (AUTO) 85 % (42-75); PLATELET COUNT 396 x10^3/uL (130-400); RED BLOOD COUNT 3.74 x10^6/uL (4.38-5.82); RED CELL DISTRIBUTION WIDTH 15.5 % (9.4-14.8)
[2018-04-12 05:35] LABS: ALANINE AMINOTRANSFERASE 8 U/L (12-78); ALBUMIN 2.7 g/dL (3.4-5.0); ANION GAP 6 mmol/L (5-15); CALCIUM 8.9 mg/dL (8.5-10.1); CHLORIDE 108 mmol/L (98-107); CREATININE 0.73 mg/dL (0.7-1.3)
[2018-04-12 05:37] LABS: ALKALINE PHOSPHATASE 79 U/L (45-117); BILIRUBIN,TOTAL 0.4 mg/dL (0.2-1.0); TOTAL PROTEIN 6.5 g/dL (6.4-8.2)
[2018-04-12] MEDS: NYSTATIN 500,000 UNITS/5 ML UDC PO SCH ×4 (06:00→22:22)
[2018-04-12] MEDS: INSULIN LISPRO 100 UNITS/ML, PEN SQ-INSULIN SCH ×4 (07:00→21:00)
[2018-04-12 07:14] VITALS: BP_SYST 105; BP_SYST 124; BP_SYST 133; BP_DIAS 65; BP_DIAS 75
[2018-04-12] MEDS: SODIUM CHLORIDE FLUSH 10ML SYR IVF SCH ×2 (09:31→21:00)
[2018-04-12] MEDS: LACTULOSE 20 GM/30 ML UDC PO SCH (09:31)
[2018-04-12] MEDS: FOLIC ACID 1 MG TABLET PO SCH (09:32)
[2018-04-12] MEDS: FINASTERIDE 5 MG TABLET PO SCH (09:32)
[2018-04-12] MEDS: ENOXAPARIN 40 MG/0.4 ML SQ SCH (11:30)
[2018-04-12 14:20] VITALS: BP 145/75
[2018-04-12 19:41] VITALS: BP 149/78
[2018-04-12] MEDS: ACETAMINOPHEN 325 MG TABLET PO PRN (22:22)
[2018-04-13 00:59] VITALS: BP 161/77
[2018-04-13] MEDS: SODIUM CHLORIDE 0.9% 1,000 ML IV SCH ×2 (01:05→11:18)
[2018-04-13] MEDS: NYSTATIN 500,000 UNITS/5 ML UDC PO SCH ×4 (06:36→21:48)
[2018-04-13 06:55] VITALS: BP 170/84
[2018-04-13] MEDS: INSULIN LISPRO 100 UNITS/ML, PEN SQ-INSULIN SCH ×4 (07:00→21:48)
[2018-04-13] MEDS: SODIUM CHLORIDE FLUSH 10ML SYR IVF SCH ×2 (08:09→21:00)
[2018-04-13] MEDS: LACTULOSE 20 GM/30 ML UDC PO SCH (08:10)
[2018-04-13] MEDS: FOLIC ACID 1 MG TABLET PO SCH (08:10)
[2018-04-13] MEDS: FINASTERIDE 5 MG TABLET PO SCH (08:10)
[2018-04-13] MEDS: ENOXAPARIN 40 MG/0.4 ML SQ SCH (08:13)
[2018-04-13 13:18] VITALS: BP 117/69
[2018-04-13] MEDS ORDERED: VANCOMYCIN PER PHARMACY MC PRN (15:00)
[2018-04-13] MEDS ORDERED: VANCOMYCIN PMX 1GM/200ML 200 ML IV ONE (15:00)
[2018-04-13 15:04] VITALS: BP_SYST 114; BP_SYST 132; BP_SYST 97; BP_DIAS 61; BP_DIAS 70; BP_DIAS 74
[2018-04-13] MEDS ORDERED: PHARMACOKINETIC MONITORING MC PRN (15:30)
[2018-04-13] MEDS ORDERED: PHARMACOKINETIC CONSULTATION MC ONE (15:30)
[2018-04-13] MEDS: VANCOMYCIN 1,400 MG in SODIUM CHLORIDE 0.9% 250 ML IV SCH (15:52)
[2018-04-13] MEDS: ACETAMINOPHEN 325 MG TABLET PO PRN (17:55)
[2018-04-13 19:48] VITALS: BP 135/70
[2018-04-13] MEDS: CEFTRIAXONE PMX 1GM/50ML 50 ML IV SCH (23:55)
[2018-04-14 01:41] VITALS: BP 163/83
[2018-04-14] MEDS: SODIUM CHLORIDE 0.9% 1,000 ML IV SCH ×3 (03:03→22:29)
[2018-04-14 05:11] LABS: CREATININE 0.71 mg/dL (0.7-1.3)
[2018-04-14] MEDS: NYSTATIN 500,000 UNITS/5 ML UDC PO SCH ×4 (06:00→19:31)
[2018-04-14] MEDS: INSULIN LISPRO 100 UNITS/ML, PEN SQ-INSULIN SCH ×4 (07:00→21:26)
[2018-04-14 07:31] VITALS: BP 136/78
[2018-04-14] MEDS: SODIUM CHLORIDE FLUSH 10ML SYR IVF SCH ×2 (09:13→19:32)
[2018-04-14] MEDS: LACTULOSE 20 GM/30 ML UDC PO SCH (09:20)
[2018-04-14] MEDS: ACETAMINOPHEN 325 MG TABLET PO PRN ×2 (09:21→19:31)
[2018-04-14] MEDS: ENOXAPARIN 40 MG/0.4 ML SQ SCH (09:21)
[2018-04-14] MEDS: FINASTERIDE 5 MG TABLET PO SCH (09:21)
[2018-04-14] MEDS: FOLIC ACID 1 MG TABLET PO SCH (09:21)
[2018-04-14 12:47] VITALS: BP 163/74
[2018-04-14 19:54] VITALS: BP 150/66
[2018-04-14] MEDS: MAGNESIUM HYDROXIDE 8%, 30ML UDC PO PRN (22:44)
[2018-04-15] MEDS: CEFTRIAXONE PMX 1GM/50ML 50 ML IV SCH (00:11)
[2018-04-15 03:00] VITALS: BP 164/81
[2018-04-15] MEDS: VANCOMYCIN 1,400 MG in SODIUM CHLORIDE 0.9% 250 ML IV SCH (03:24)
[2018-04-15] MEDS: NYSTATIN 500,000 UNITS/5 ML UDC PO SCH ×4 (07:22→21:34)
[2018-04-15] MEDS: ENOXAPARIN 40 MG/0.4 ML SQ SCH (07:49)
[2018-04-15] MEDS: FOLIC ACID 1 MG TABLET PO SCH (07:49)
[2018-04-15] MEDS: FINASTERIDE 5 MG TABLET PO SCH (07:49)
[2018-04-15] MEDS: LACTULOSE 20 GM/30 ML UDC PO SCH (07:49)
[2018-04-15] MEDS: INSULIN LISPRO 100 UNITS/ML, PEN SQ-INSULIN SCH ×4 (07:49→21:34)
[2018-04-15] MEDS: SODIUM CHLORIDE 0.9% 1,000 ML IV SCH ×2 (07:50→19:50)
[2018-04-15] MEDS: SODIUM CHLORIDE FLUSH 10ML SYR IVF SCH ×2 (07:50→21:00)
[2018-04-15 07:59] VITALS: BP 122/73
[2018-04-15 08:04] VITALS: BP 91/59
[2018-04-15 08:06] VITALS: BP 118/79
[2018-04-15 08:42] LABS: BASOPHILS # (AUTO) 0.03 x10^3/uL (0-0.1); BASOPHILS % (AUTO) 1 % (0-1); EOSINOPHILS # (AUTO) 0.13 x10^3/uL (0-0.4); EOSINOPHILS % (AUTO) 3 % (1-7); LYMPHOCYTES # (AUTO) 1.37 x10^3/uL (1-3.4); LYMPHOCYTES % (AUTO) 27 % (22-44); MD NO; MEAN CORPUSCULAR HEMOGLOBIN 29.8 pg (27.5-34.5); MEAN CORPUSCULAR HGB CONC 32.7 g/dL (33.2-36.2); MEAN CORPUSCULAR VOLUME 91.3 fL (81-97); MEAN PLATELET VOLUME 6.6 fL (7.4-10.4); MONOCYTES # (AUTO) 0.51 x10^3/uL (0.2-0.8); MONOCYTES % (AUTO) 10 % (2-9); NEUTROPHILS # (AUTO) 3.07 x10^3/uL (1.8-6.8); NEUTROPHILS % (AUTO) 60 % (42-75); PLATELET COUNT 377 x10^3/uL (130-400); RED BLOOD COUNT 4.09 x10^6/uL (4.38-5.82); RED CELL DISTRIBUTION WIDTH 15.1 % (9.4-14.8)
[2018-04-15 08:52] LABS: ALANINE AMINOTRANSFERASE 9 U/L (12-78); ALBUMIN 2.9 g/dL (3.4-5.0); ANION GAP 7 mmol/L (5-15); CALCIUM 8.6 mg/dL (8.5-10.1); CHLORIDE 105 mmol/L (98-107); CREATININE 0.74 mg/dL (0.7-1.3)
[2018-04-15 08:54] LABS: ALKALINE PHOSPHATASE 79 U/L (45-117); BILIRUBIN,TOTAL 0.2 mg/dL (0.2-1.0); TOTAL PROTEIN 6.9 g/dL (6.4-8.2)
[2018-04-15] MEDS ORDERED: ERGO500017 PO (10:24)
[2018-04-15] MEDS ORDERED: VANC1VIA3 IV (10:24)
[2018-04-15] MEDS ORDERED: ONDA4TAB13 PO (10:24)
[2018-04-15 14:10] VITALS: BP 144/72
[2018-04-15] MEDS: ERGOCALCIFEROL 50,000 UNIT CAPSULE PO SCH (14:10)
[2018-04-15 19:02] VITALS: BP 134/66
[2018-04-16] MEDS: ACETAMINOPHEN 325 MG TABLET PO PRN (03:02)
[2018-04-16 04:36] VITALS: BP 143/84
[2018-04-16] MEDS: SODIUM CHLORIDE 0.9% 1,000 ML IV SCH (05:20)
[2018-04-16] MEDS: NYSTATIN 500,000 UNITS/5 ML UDC PO SCH ×2 (05:23→11:00)
[2018-04-16] MEDS: INSULIN LISPRO 100 UNITS/ML, PEN SQ-INSULIN SCH ×2 (07:00→11:00)
[2018-04-16 07:14] VITALS: BP 147/83
[2018-04-16] MEDS: LACTULOSE 20 GM/30 ML UDC PO SCH (10:02)
[2018-04-16] MEDS: FINASTERIDE 5 MG TABLET PO SCH (10:02)
[2018-04-16] MEDS: FOLIC ACID 1 MG TABLET PO SCH (10:02)
[2018-04-16] MEDS: ENOXAPARIN 40 MG/0.4 ML SQ SCH (10:03)
[2018-04-16] MEDS: SODIUM CHLORIDE FLUSH 10ML SYR IVF SCH (10:03)
[2018-04-16 12:00] VITALS: BP 128/72
== END 2018-04-16 12:20 | DRG 689 ==
LOC: ED 10:40 → INTOOBSV 11:37 → EDIP 11:37 → OBSVTOIN 11:37 → 5SO 12:28 → 4NOR 03-20 18:20 → CCU 03-22 03:50 → 3NE 03-24 16:17 → CCU 03-25 13:55 → 3NE 03-27 19:15
PROVIDERS: ADMIT Hospitalist; ATTEND Hospitalist
PROC: 07DR3ZX Extraction of Iliac Bone Marrow, Percutaneous Approach, Diagnostic (ICD-10-PCS; 2018-03-22)
PROC: 5A1945Z Respiratory Ventilation, 24-96 Consecutive Hours (ICD-10-PCS; 2018-03-22)
PROC: 0BH17EZ Insertion of Endotracheal Airway into Trachea, Via Natural or Artificial Opening (ICD-10-PCS; 2018-03-22)
PROC: 30233N1 Transfusion of Nonautologous Red Blood Cells into Peripheral Vein, Percutaneous Approach (ICD-10-PCS; principal; 2018-03-29)
PROC: 0T9B70Z Drainage of Bladder with Drainage Device, Via Natural or Artificial Opening (ICD-10-PCS; 2018-04-11)
DX: N39.0 Urinary tract infection, site not specified (principal); J96.01 Acute respiratory failure with hypoxia; G93.41 Metabolic encephalopathy; E43 Unspecified severe protein-calorie malnutrition; J69.0 Pneumonitis due to inhalation of food and vomit; Z99.11 Dependence on respirator [ventilator] status; B37.0 Candidal stomatitis; R07.9 Chest pain, unspecified; D32.0 Benign neoplasm of cerebral meninges; G20 Parkinson's disease; E11.9 Type 2 diabetes mellitus without complications; B95.2 Enterococcus as the cause of diseases classified elsewhere; D64.9 Anemia, unspecified; F32.9 Major depressive disorder, single episode, unspecified; F41.9 Anxiety disorder, unspecified; F02.80 Dementia in other diseases classified elsewhere, unspecified severity, without behavioral disturbance, psychotic disturbance, mood disturbance, and anxiety; G47.33 Obstructive sleep apnea (adult) (pediatric); I10 Essential (primary) hypertension; I95.1 Orthostatic hypotension; K59.00 Constipation, unspecified; M85.68 Other cyst of bone, other site; N40.1 Benign prostatic hyperplasia with lower urinary tract symptoms; R33.8 Other retention of urine; Z74.01 Bed confinement status; Z80.0 Family history of malignant neoplasm of digestive organs; Z80.1 Family history of malignant neoplasm of trachea, bronchus and lung; Z82.49 Family history of ischemic heart disease and other diseases of the circulatory system; Z87.891 Personal history of nicotine dependence; Z87.81 Personal history of (healed) traumatic fracture
CPT/HCPCS: 36415; 36600; 38222; 70450; 70491; 70551; 71045; 74018; 74176; 74230; 76770; 77012; 78452; 80048; 80053; 81001; 81003; 82140; 82247; 82248; 82272; 82306; 82436; 82550; 82565; 82607; 82728; 82746; 82803; 82962; 83010; 83036; 83540; 83550; 83615; 83690; 83735; 83880; 83970; 84100; 84133; 84134; 84300; 84443; 84478; 84484; 84520; 85025; 85045; 85060; 85097; 85610; 85730; 86850; 86880; 86900; 86923; 87040; 87070; 87077; 87081; 87086; 87186; 87205; 88184; 88185; 88237; 88264; 88280; 88305; 88311; 88313; 88374; 93005; 93017; 94002; 94003; 94150; 95816; 95819; 99285; G0378; J0295; J0696; J1170; J1650; J1885; J1953; J2250; J2310; J2704; J2785; J3010; J3370; J3486; J3490; Q0162; Q9967; A9502; C9898; J0330; J0360; J1815; J2060; J7030; J7040; J7050; P9016